=== PATIENT | male | born 1965 | race Caucasian/White ===

== ENCOUNTER 2016-08-09 19:19 | Inpatient (IN) ==
[2016-08-09] MEDS ORDERED: THIAMINE INJ 100 MG, FOLIC ACID INJ 1 MG, MAGNESIUM SULF INJ 2 GM, MULTIVITAMIN INJ 10 ... IV ONE (19:34)
[2016-08-09 19:43] LABS: Basophils % 0.5 % (0.0-0.8); Eosinophils # 0.2 10*3/uL (0.0-0.87); Eosinophils % 2.2 % (0.00-10.9); Hematocrit 33.5 VOL% (42.0-52.0); Hemoglobin 11.4 GM/DL (14.0-18.0); Immature Granulocytes % 0.3 %; Immature Granulocytes Absolute 0.02 #; Lymphocytes # 1.3 10*3/uL (1.4-4.0); Lymphocytes % 16.9 % (21.2-54.2); Mean Corpuscular Hemoglobin 37 PG (27-34); Mean Corpuscular Volume 108.1 FL (87-102); Monocytes # 0.8 10*3/uL (0.11-0.8); Monocytes % 10.8 % (1.7-12.7); Neutrophils # 5.1 10*3/uL (1.4-7.4); Neutrophils % 69.3 % (38.7-73.9); Platelet Count 51 T/CUMM (130-400); White Blood Count 7.4 T/CUMM (4-12)
[2016-08-09 19:53] LABS: INR 1.3; PT Patient Result 13.9 SECS; Partial Thromboplastin Time 39.2 SECS (0-40)
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
[2016-08-09 20:02] LABS: Ammonia 124 UMOL/L (11-32)
[2016-08-09 20:07] LABS: Alanine Aminotransferase 43 U/L (16-61); Alkaline Phosphatase 194 U/L (45-117); Aspartate Amino Transferase 53 U/L (0-37); Blood Urea Nitrogen 13 MG/DL (7-18); Calcium 7.9 MG/DL (8.5-10.1); Glucose 123 MG/DL (74-106); Osmolality,Calculated 277.5 MOS/KG (273-304); Potassium 4.1 MMOL/L (3.5-5.1); Sodium 139 MMOL/L (136-145); Total Protein 5.9 G/DL (6.4-8.3); Troponin I Only < 0.015 NG/ML (0.00-0.045)
[2016-08-09 20:15] LABS: Band Neutrophils 1 % (0-10); Lymphocytes 11 % (20-55); Platelet Estimate Decreased; Segmented Neutrophils 81 % (50-85); Total Cells Counted 100
[2016-08-09 20:16] LABS: Atypical Lymphocytes Few
[2016-08-09 20:17] LABS: Burr Cells Slight; Polychromasia Slight
--- NOTE | 2016-08-09 20:31 | XRay Report ---
History: Altered mental status. History of hypertension and COPD Date: 08/09/2016 Study: Chest x-ray AP portable Comparison exam: Chest x-ray August 05, 2016 The cardiomediastinal silhouette is unchanged. The pulmonary vasculature is slightly prominent. The exam was performed in shallow inspiration. Interstitial scarring in the lung bases is accentuated by shallow inspiration. There is no svetlana pneumonia or gross layering pleural effusion. Osseous structures are unchanged. Impression: Borderline pulmonary venous hypertension appearance. Otherwise grossly unchanged. Shallow breath PROCEDURE INTERPRETED AT [facility] DEPARTMENT OF RADIOLOGY Final Report Signed by: Dr. Brenda Salguero
[2016-08-09] MEDS ORDERED: ETOMIDATE 20 MG/10 ML VIAL IV ONE (21:29)
[2016-08-09] MEDS ORDERED: VECURONIUM 10 MG VIAL IV ONE (21:29)
[2016-08-09] MEDS ORDERED: SUCCINYLCHOLINE 200 MG/10 ML VIAL ONE (21:29)
[2016-08-09] MEDS ORDERED: PROPOFOL 1,000 MG/100 ML BOTTLE IV ONE (21:35)
[2016-08-09] MEDS ORDERED: PROPOFOL 1,000 MG/100 ML BOTTLE IV SCH ×3 (21:40→23:30)
[2016-08-09 22:07] LABS: ABG Base Excess 0.1 MMOL/L (-2.5-2.5); ABG HCO3 24.2 MMOL/L (20-26); ABG Oxygen Saturation 81.3 % (95-100); ABG PH 7.308 (7.35-7.45); ABG PO2 54.8 MM HG (80-95); ABG TCO2 24.6 MMOL/L (23-27); Pt O2 Delivery Device Ventilator
--- NOTE | 2016-08-09 22:08 | XRay Report ---
History: Endotracheal tube placement Date: 08/09/2016 Study: Chest x-ray AP portable Comparison exam: Chest x-ray 08/09/2016 at 7:42 PM The endotracheal tube is well positioned with its tip superior to the harrison. The chest is otherwise unchanged from the earlier study. Impression: Satisfactory positioning of the endotracheal tube. Otherwise unchanged from the earlier study PROCEDURE INTERPRETED AT [facility] DEPARTMENT OF RADIOLOGY Final Report Signed by: Dr. Brenda Salguero
[2016-08-09] MEDS ORDERED: SUCCINYLCHOLINE 200 MG/10 ML VIAL IM STA (22:30)
[2016-08-09] MEDS ORDERED: VECURONIUM 10 MG VIAL IV STA (22:31)
[2016-08-09 23:04] LABS: Apearance,Urine Slightly Hazy (Clear); Barbiturates Screen,Urine Negative (Negative); Benzodiazepines Screen,Urine Positive (Negative); Bilirubin,Urine Small mg/dL (Negative); Blood, Urine Large mg/dL (Negative); Cannabinoid Screen,Urine Negative (Negative); Glucose,Urine (UA) Negative (Negative); Granular Casts,Urine 7 /LPF (0-1); Hyaline Casts,Urine 71 /LPF (0-3); Ketones,Urine Negative (Negative); Mucus,Urine Many /LPF (Occasional); Nitrite,Urine Negative (Negative); Opiate Screen,Urine Positive (Negative); Phencyclidine Screen,Urine Negative (Negative); Protein,Urine 100 MG/DL; RBC,Urine 461 /HPF (0-4); Squamous Epithelial Cell,Urine Occasional /HPF (0-10); Urine Color Amber (Yellow); Urine Specific Gravity 1.028 (1.001-1.035); WBC,Urine 31 /HPF (0-6)
[2016-08-09] MEDS ORDERED: LACTULOSE 20 GM/30 ML UDCUP PO SCH (23:22)
[2016-08-09] MEDS ORDERED: DOCUSATE SODIUM 100 MG CAPSULE PO PRN ×2 (23:22→23:51)
[2016-08-09] MEDS ORDERED: ACETAMINOPHEN 325 MG TABLET PO PRN ×2 (23:22→23:51)
[2016-08-09] MEDS ORDERED: GLUCAGON 1 MG VIAL IM PRN ×2 (23:22→23:51)
[2016-08-09] MEDS ORDERED: DEXTROSE 50% 25 GM/50 ML VIAL IV PRN ×2 (23:22→23:51)
[2016-08-09] MEDS ORDERED: fentaNYL INJ 1,250 MCG in SODIUM CHLORIDE 0.9% 225 ML IV SCH (23:30)
[2016-08-10] MEDS ORDERED: INSULIN LISPRO 100 UNIT/ML SUBCUT SCH
[2016-08-10] MEDS: INSULIN LISPRO 100 UNIT/ML SUBCUT SCH ×4 (00:10→18:19)
[2016-08-10] MEDS: LACTULOSE 20 GM/30 ML UDCUP PO SCH ×6 (00:22→20:03)
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
[2016-08-10] MEDS ORDERED: PROPOFOL 1,000 MG/100 ML BOTTLE IV ONE ×2 (04:36→16:54)
[2016-08-10 05:10] LABS: Allen Test Positive; Pt O2 Delivery Device Ventilator
[2016-08-10 05:18] LABS: ABG Base Excess -2.3 MMOL/L (-2.5-2.5); ABG HCO3 26.8 MMOL/L (20-26); ABG Oxygen Saturation 83.5 % (95-100); ABG PCO2 67.2 MM HG (35-48); ABG PH 7.218 (7.35-7.45); ABG TCO2 28.8 MMOL/L (23-27)
[2016-08-10 06:07] LABS: Albumin 1.9 G/DL (3.4-5.0); Bilirubin,Total 3.9 MG/DL (0.2-1.0); Calcium 7.8 MG/DL (8.5-10.1); Magnesium 2.1 MG/DL (1.8-2.4); Osmolality,Calculated 277.5 MOS/KG (273-304); Potassium 4.4 MMOL/L (3.5-5.1); Total Protein 5.8 G/DL (6.4-8.3)
[2016-08-10 07:46] LABS: Basophils % 0.5 % (0.0-0.8); Eosinophils # 0.3 10*3/uL (0.0-0.87); Eosinophils % 4.3 % (0.00-10.9); Hematocrit 34.3 VOL% (42.0-52.0); Hemoglobin 11.7 GM/DL (14.0-18.0); Immature Granulocytes % 0.4 %; Immature Granulocytes Absolute 0.03 #; Lymphocytes % 27.1 % (21.2-54.2); Mean Corpuscular HGB Conc 34.1 GM/DL (32-36); Mean Corpuscular Hemoglobin 37 PG (27-34); Mean Corpuscular Volume 108.2 FL (87-102); Monocytes # 0.9 10*3/uL (0.11-0.8); Monocytes % 12.5 % (1.7-12.7); Neutrophils # 4.1 10*3/uL (1.4-7.4); Neutrophils % 55.2 % (38.7-73.9); Platelet Count 49 T/CUMM (130-400); Red Blood Count 3.17 MC/CUMM (3.8-5.5); Red Cell Distribution Width 18.7 % (9.3-17.3); White Blood Count 7.5 T/CUMM (4-12)
[2016-08-10 07:47] LABS: ABG Base Excess 3.2 MMOL/L (-2.5-2.5); ABG HCO3 27.3 MMOL/L (20-26); ABG Oxygen Saturation 99.3 % (95-100); ABG PCO2 33.1 MM HG (35-48); ABG PH 7.502 (7.35-7.45); ABG TCO2 22.9 MMOL/L (23-27)
--- NOTE | 2016-08-10 07:59 | XRay Report ---
History: Respiratory failure on ventilator Date: 08/10/2016 Study: Chest x-ray AP portable Comparison exam: 08/09/2016 The endotracheal and nasogastric tubes are well-positioned. The cardiomediastinal silhouette is unchanged. There is slight patient rotation to the right. There is some mild strandy subsegmental atelectasis or scarring in the lower lungs. There is no new or worsening infiltrate. There is no gross pleural effusion. The osseous structures are unchanged. Impression: The supporting tubes are in satisfactory position. No gross overall change otherwise PROCEDURE INTERPRETED AT [facility] DEPARTMENT OF RADIOLOGY Final Report Signed by: Dr. Brenda Salguero
[2016-08-10 08:37] LABS: Platelet Estimate Decreased
[2016-08-10] MEDS ORDERED: NADOLOL 40 MG TABLET PO SCH ×2 (09:00)
[2016-08-10] MEDS ORDERED: GABAPENTIN 400 MG CAPSULE PO SCH (09:00)
[2016-08-10] MEDS ORDERED: AMITRIPTYLINE 25 MG TABLET PO SCH (09:00)
[2016-08-10] MEDS ORDERED: FUROSEMIDE 40 MG TABLET PO SCH (09:00)
[2016-08-10] MEDS ORDERED: SPIRONOLACTONE 100 MG TABLET PO SCH (09:00)
[2016-08-10] MEDS ORDERED: LANSOPRAZOLE ODT 30 MG TABLET PER TUBE SCH (09:00)
--- NOTE | 2016-08-10 10:04 | Hospitalist Progress Note ---
Assessment and Plan - Time spent with patient Time spent with patient: Greater than 30 minutes (1) Hypoalbuminemia Status: Acute Assessment and plan: Likely due to liver cirrhosis with poor hepatic synthetic function Nutrition consult for tube feeding if we are unable to extubate him soon. Current Visit: No (2) Cirrhosis of liver Status: Chronic Assessment and plan: Liver cirrhosis with hepatic encephalopathy. On lactulose, monitor ammonia levels. Gastroenterology consult. Current Visit: No (3) Hepatitis C infection Status: Chronic Assessment and plan: Monitor liver function. Alpha-fetoprotein can be checked. Gastroenterology consult Current Visit: No (4) Altered mental status Status: Acute Assessment and plan: Due to hepatic encephalopathy. Continue lactulose and monitor adequate number of stools per day. Monitor ammonia levels. Avoid hepatotoxic medications Currently on propofol, and hemodynamically stable, stop sedation and assess mental status. Current Visit: No (5) Hepatic encephalopathy Status: Acute Current Visit: No (6) Hypernatremia Status: Acute Current Visit: No (7) History of alcoholism Status: Acute Assessment and plan: Continue vitamin supplementation. Thiamine, B12 and folate. Watch for DTs Current Visit: Yes (8) Thrombocytopenia Status: Acute Assessment and plan: Likely due to liver cirrhosis. No active bleeding. Monitor platelet count. Current Visit: Yes Hospitalist: Subjective Interval history: 51-year-old male with history of alcoholic cirrhosis, IV drug abuse who was admitted overnight for altered mental status suspected to be due to hepatic encephalopathy. He ended up being intubated and is currently on vent support. He was fully sedated at the time of my rounds this morning so no neurological examination could be done. He was however hemodynamically stable at that time with good heart rate and blood pressure. Serum ammonia levels are much better since lactulose was started. No fever Exam - Constitutional Vitals: Period Temp Pulse Resp BP Sys/Torres Pulse Ox Last 24 Hr 97.8 F-98.3 F 86-102 13-17 88-122/65-87 93-100 General appearance: no acute distress, other (Sedated) Exam: General appearance: disheveled, intubated and sedated Exam: - ENT ENT exam: Present: normal external ear exam, normal oropharynx ENT Exam Mouth exam: Present: moist, poor dentition - Neck Neck exam: Present: normal inspection. Absent: lymphadenopathy, thyromegaly - Respiratory Respiratory exam: Present: Transmitted sounds on vent. I did not appreciate any rales, rhonchi, wheezes - Cardiovascular Cardiovascular exam: Present: regular rate and rhythm. Absent: diastolic murmur , systolic murmur - Expanded Cardiovascular Exam Peripheral pulses: 2+: posterior tibialis (L), posterior tibialis (R) - GI/Abdominal GI/Abdominal exam: Present: normal bowel sounds, soft, clean dry intact dressing over paracentesis. Absent: distended, hyperactive bowel sounds, hypoactive bowel sounds, organomegaly, tenderness, rebound - Extremities Exam Extremities exam: Present: Bilateral lower extremity edema - Neurological Exam Neurological exam: Present: Did not alert to voice or pain on sedation, paralytic - Skin Skin exam: Present: warm, dry. Absent: diaphoretic, rash - Head Head exam: Present: normal inspection, normocephalic, atraumatic - Respiratory Respiratory exam: Present: clear to auscultation bilaterally, other ( Transmitted breath sounds) - Cardiovascular Cardiovascular exam: Present: regular rate and rhythm - GI/Abdominal GI/Abdominal exam: Present: soft - Neurological Exam Neurological exam: Present: other (Sedated, unable to assess) - Skin Skin exam: Present: normal color, warm, dry Results - Labs CBC & BMP: 08/10/16 07:41 08/10/16 05:25 Lab Results: I have reviewed the past 24 hour labs - Diagnostic Findings Procedure: Chest x-ray: report reviewed by me, image reviewed by me Quality Measures - VTE Contraindication to Pharmacological VTE Prophylaxis: Thrombocytopenia
[2016-08-10] MEDS: FUROSEMIDE 40 MG TABLET PO SCH (10:21)
[2016-08-10] MEDS: AMITRIPTYLINE 25 MG TABLET PO SCH (10:21)
[2016-08-10] MEDS: SPIRONOLACTONE 50 MG TABLET PO SCH (10:21)
[2016-08-10] MEDS: LANSOPRAZOLE ODT 30 MG TABLET PER TUBE SCH (10:22)
[2016-08-10] MEDS: GABAPENTIN 400 MG CAPSULE PO SCH ×3 (10:25→21:06)
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
[2016-08-10] MEDS ORDERED: NOREPINEPHRINE 4 MG/4 ML VIAL IV ONE (13:30)
[2016-08-10] MEDS: NOREPINEPHRINE 8 MG in SODIUM CHLORIDE 0.9% 242 ML IV SCH (13:35)
[2016-08-10 15:51] LABS: Pt O2 Delivery Device Ventilator
[2016-08-10 15:52] LABS: ABG Base Excess 3.9 MMOL/L (-2.5-2.5); ABG HCO3 26.4 MMOL/L (20-26); ABG Oxygen Saturation 97.4 % (95-100); ABG PCO2 32.5 MM HG (35-48); ABG PH 7.527 (7.35-7.45); ABG PO2 102.6 MM HG (80-95); ABG TCO2 27.4 MMOL/L (23-27)
[2016-08-10] MEDS: fentaNYL INJ 1,250 MCG in SODIUM CHLORIDE 0.9% 225 ML IV SCH (20:48)
[2016-08-10] MEDS ORDERED: PROPOFOL 1,000 MG/100 ML BOTTLE IV SCH (23:30)
[2016-08-11] MEDS: INSULIN LISPRO 100 UNIT/ML SUBCUT SCH ×5 (00:02→23:59)
[2016-08-11] MEDS: LACTULOSE 20 GM/30 ML UDCUP PO SCH ×6 (00:20→18:31)
[2016-08-11] MEDS: fentaNYL INJ 1,250 MCG in SODIUM CHLORIDE 0.9% 225 ML IV SCH (00:21)
[2016-08-11 05:46] LABS: Albumin 1.8 G/DL (3.4-5.0); Bilirubin,Total 3.4 MG/DL (0.2-1.0); Calcium 7.6 MG/DL (8.5-10.1); Magnesium 1.7 MG/DL (1.8-2.4); Osmolality,Calculated 275.5 MOS/KG (273-304); Potassium 4.1 MMOL/L (3.5-5.1); Total Protein 5.5 G/DL (6.4-8.3)
--- NOTE | 2016-08-11 07:17 | XRay Report ---
XR chest 1V portable Indication: Shortness of breath Comparison: Chest x-ray 08/10/2016 Technique: Portable AP chest was performed. Findings: Multiple tubes and medical support devices appear stable. Minimal airspace disease is present within the left cardiophrenic angle. Lungs otherwise are clear. Chest is otherwise stable. Impression: 1. Infectious process left medial lung base is not excluded. 08/11/2016 7:14 AM PROCEDURE INTERPRETED AT [facility] DEPARTMENT OF RADIOLOGY Final Report Signed by: Dr. Luke Mesa
[2016-08-11] MEDS ORDERED: MAGNESIUM SULF RIDER 2 GM in PREMIX 1 EACH IV ONE (07:28)
--- NOTE | 2016-08-11 08:00 | Hospitalist Progress Note ---
Assessment and Plan (1) Cirrhosis Status: Chronic Assessment and plan: Chronic. See plan for acute hepatic encephalopathy. Current Visit: Yes Qualifiers: Hepatic cirrhosis type: alcoholic cirrhosis Ascites presence: with ascites Qualified Code(s): K70.31 - Alcoholic cirrhosis of liver with ascites (2) Hypoalbuminemia Status: Chronic Current Visit: Yes (3) Hepatic encephalopathy Status: Acute Assessment and plan: Likely related to poor compliance with Lactulose. Ammonia levels on admission were quite elevated. Trending down on current lactulose regimen. Sedation held this am in anticipation of extubation. Currently non-combative. Current Visit: Yes (4) Hepatitis C Status: Chronic Current Visit: Yes Qualifiers: Hepatic coma status: with hepatic coma (5) History of alcoholism Status: Chronic Current Visit: Yes (6) Thrombocytopenia Status: Chronic Assessment and plan: Stable TCP. No signs of bleeding. Will continue to monitor the need to transfuse. Holding off for now. Current Visit: Yes (7) Hypomagnesemia Status: Acute Assessment and plan: Mildly low. Replace with Mag. Sulfate x1. Current Visit: Yes (8) Hypotension Status: Acute Assessment and plan: Nadolol held due to hypotension. Still remains on minimal pressors, however, weaning. Current Visit: Yes Hospitalist: Subjective Interval history: Patient remains intubated and on minimal sedation. Respiratory status is stable and will likely extubate today. No acute issues overnight. Propofol discontinued around 7am. Non-combative on rounds this morning. Ammonia levels decreased from admission values. Remains on minimal pressors with mean BP in the upper 80's- low 90's. Exam - Constitutional Vitals: Period Temp Pulse Resp BP Sys/Torres Pulse Ox Last 24 Hr 97.8 F-99.6 F 61-92 12-29 70-120/46-94 93-100 Exam: Ill-appearing, somnolent. No obvious distress - Head Head exam: Present: normocephalic, atraumatic - Eye Eye exam: Present: EOMI, scleral icterus - ENT ENT exam: Present: other (Poor dentition) - Neck Neck exam: Present: normal inspection. Absent: lymphadenopathy - Respiratory Respiratory exam: Present: clear to auscultation bilaterally. Absent: rales, rhonchi, wheezes - Cardiovascular Cardiovascular exam: Present: regular rate and rhythm. Absent: gallop, rubs, systolic murmur - GI/Abdominal GI/Abdominal exam: Present: normal bowel sounds, distended, soft. Absent: guarding - Neurological Exam Neurological exam: Present: other (Somnolent on minimal sedation) - Skin Skin exam: Present: warm, other (icteric) Results - Labs CBC & BMP: 08/10/16 07:41 08/11/16 04:49 Quality Measures - VTE Contraindication to Pharmacological VTE Prophylaxis: Thrombocytopenia
--- NOTE | 2016-08-11 08:15 | Pulmonology Progress Note ---
Pulmonary - PN: Subj Interval history: Patient is a 51-year-old white male that apparently has some cirrhosis with alcohol abuse. He apparently has a history of COPD also. He was very combative when he came into the emergency room and had to be intubated. Now he is waking up a little bit and is stable on the ventilator. He apparently is quite confused still however. His ammonia level was 99 this morning. Exam (Progress Note) - Constitutional Vitals: Period Temp Pulse Resp BP Sys/Torres Pulse Ox Last 24 Hr 98.6 F-99.6 F 61-92 12-29 70-120/46-94 93-100 General appearance: normal weight, no acute distress (He is still somewhat sedated on the ventilator.) - Head Head exam: Present: normal inspection, normocephalic - Eye Eye exam: Present: EOMI, scleral icterus Pupils: Present: LETTY - ENT ENT exam: Present: normal exam, other (ET tube is in good position) - Neck Neck exam: Present: normal inspection. Absent: lymphadenopathy, thyromegaly - Respiratory Respiratory exam: Present: clear to auscultation bilaterally. Absent: wheezes - Cardiovascular Cardiovascular exam: Present: regular rate and rhythm. Absent: gallop, systolic murmur - GI/Abdominal GI/Abdominal exam: Present: soft. Absent: ascites, organomegaly, tenderness - Extremities Exam Extremities exam: Absent: calf tenderness, edema - Neurological Exam Neurological exam: Present: altered (Patient is still quite agitated at times) - Psychiatric Psychiatric exam: Present: agitated - Skin Skin exam: Present: warm, dry Results - Labs CBC & BMP: 08/10/16 07:41 08/11/16 04:49 - Diagnostic Findings Procedure: Chest x-ray: image reviewed by me, report reviewed by me (Chest x- ray is clear.) Assessment and Plan (1) Cirrhosis Status: Acute Assessment and plan: Patient apparently has chronic liver disease and his ammonia level is 99 now. His total bilirubin is 3.4. Current Visit: Yes (2) Delirium due to general medical condition Status: Acute Assessment and plan: The patient was combative in the ER and had to be intubated. He is sedated now. Current Visit: Yes (3) COPD (chronic obstructive pulmonary disease) Status: Chronic Assessment and plan: Patient has a history of having COPD. He will continue with bronchodilator therapy. Current Visit: Yes (4) Respiratory failure Status: Acute Assessment and plan: The patient is fairly stable on the ventilator at present. Will extubate when he is more alert. Current Visit: Yes
[2016-08-11 08:32] LABS: ABG Base Excess 2.4 MMOL/L (-2.5-2.5); ABG HCO3 25.7 MMOL/L (20-26); ABG Oxygen Saturation 97.9 % (95-100); ABG PCO2 35.6 MM HG (35-48); ABG PH 7.477 (7.35-7.45); ABG PO2 108.8 MM HG (80-95); ABG TCO2 26.8 MMOL/L (23-27)
[2016-08-11] MEDS: SPIRONOLACTONE 50 MG TABLET PO SCH (09:02)
[2016-08-11] MEDS: FUROSEMIDE 40 MG TABLET PO SCH (09:03)
[2016-08-11] MEDS: AMITRIPTYLINE 25 MG TABLET PO SCH (09:03)
[2016-08-11] MEDS: LANSOPRAZOLE ODT 30 MG TABLET PER TUBE SCH (09:03)
[2016-08-11] MEDS: GABAPENTIN 400 MG CAPSULE PO SCH ×3 (09:03→20:00)
[2016-08-11] MEDS: LORazepam 2 MG/1 ML VIAL IV PRN ×2 (10:21→20:00)
[2016-08-11] MEDS: NOREPINEPHRINE 8 MG in SODIUM CHLORIDE 0.9% 242 ML IV SCH ×3 (12:31→22:50)
[2016-08-12] MEDS: LACTULOSE 20 GM/30 ML UDCUP PO SCH ×6 (00:03→20:50)
[2016-08-12] MEDS: INSULIN LISPRO 100 UNIT/ML SUBCUT SCH ×3 (06:00→18:16)
--- NOTE | 2016-08-12 07:16 | Hospitalist Progress Note ---
Hospitalist: Subjective Interval history: Patient was extubated 08/11/2016 at approximately 9:30 AM. He is still confused with garbled speech and answering a few yes or no questions. He has remained agitated at times requiring Ativan IV 2. No fever. No bowel movement reported over the last 24 hours. Exam - Constitutional Vitals: Period Temp Pulse Resp BP Sys/Torres Pulse Ox Last 24 Hr 97.5 F-98.8 F 79-93 8-24 66-130/51-96 90-97 Exam: GEN: Patient is awake, confused, lethargic but arousable lying in the hospital bed in no acute distress. HEENT: No icteric sclera. No nystagmus noted. Dry mucous membranes. NG tube in place Neck: Supple no lymphadenopathy or thyromegaly appreciated no JVD Cardiovascular: Regular rate and rhythm normal S1-S2 diminished no obvious murmurs appreciated Lungs: Clear to auscultation bilaterally with good aeration nonlabored breathing noted Abdomen: Slightly distended, slightly firm, nontender to palpation. Hypoactive bowel sounds appreciated Extremities: Warm and well-perfused no clubbing cyanosis or edema. Patient moves all extremities to tactile stimulation and occasionally to verbal command Neuro: A full neuro exam could not be completed as the patient was not cooperative with the exam. Results - Labs CBC & BMP: 08/12/16 07:45 08/12/16 07:45 Labs: 08/09 Urine culture- NGTD 08/10 Blood culture- NGTD x 2 - Impressions (1) Hepatic encephalopathy Status: Acute Assessment and plan: Likely related to poor compliance with Lactulose. Ammonia levels on admission were 99. Trending down on current lactulose regimen. Currently non-combative. Discussed with nursing checking for fecal impaction . Recheck labs this a.m. continue lactulose. Follow-up cultures. Will hold gabapentin for now current Visit: Yes (2) Cirrhosis due to alcohol use and hepatitis C Status: Chronic Assessment and plan: Chronic. See plan for acute hepatic encephalopathy. Current Visit: Yes Qualifiers: Hepatic cirrhosis type: alcoholic cirrhosis Ascites presence: with ascites Qualified Code(s): K70.31 - Alcoholic cirrhosis of liver with ascites (3) Acute hypoxic respiratory failure due to delirium -Patient extubated 08/11/2016 (4) Thrombocytopenia Status: Chronic Assessment and plan: Likely due to cirrhosis. No signs of bleeding. Will continue to monitor the need to transfuse. Holding off for now. Serial labs Current Visit: Yes (5) Hypomagnesemia Status: Acute Assessment and plan: Mildly low. Replaced with Mag. Sulfate x1 08/11. Recheck labs today Current Visit: Yes (6) Hypoalbuminemia Status: Chronic Current Visit: Yes (7) Hepatitis C Status: Chronic Current Visit: Yes Qualifiers: Hepatic coma status: with hepatic coma (8) History of alcoholism Status: Chronic Current Visit: Yes (9) hypotension -We will hold Aldactone. Try to wean off Levophed. Check TSH and cortisol level. (10) COPD not in acute exacerbation -Aerosols as needed (11) debility -PT OT and speech therapy consult. Want speech evaluates perhaps patient may be able to start a diet. If not will obtain tube feeding recommendations per nutrition. (12) DVT prophylaxis- SCDs I left a message for his next of kin, Jenifer Miller, at the number provided by nursing staff at [phone]. Will update when available. 37 minutes spent with this pt. Quality Measures - VTE Contraindication to Pharmacological VTE Prophylaxis: Thrombocytopenia
[2016-08-12 07:58] LABS: Basophils # 0.1 10*3/uL (0.0-0.2); Basophils % 0.7 % (0.0-0.8); Eosinophils # 0.5 10*3/uL (0.0-0.87); Eosinophils % 6.2 % (0.00-10.9); Hematocrit 30.4 VOL% (42.0-52.0); Hemoglobin 10.5 GM/DL (14.0-18.0); Immature Granulocytes % 0.2 %; Immature Granulocytes Absolute 0.02 #; Lymphocytes # 2.3 10*3/uL (1.4-4.0); Lymphocytes % 28.1 % (21.2-54.2); Mean Corpuscular HGB Conc 34.5 GM/DL (32-36); Mean Corpuscular Hemoglobin 38 PG (27-34); Mean Corpuscular Volume 108.6 FL (87-102); Mean Platelet Volume 10.8 FL (9.6-12.0); Monocytes # 0.7 10*3/uL (0.11-0.8); Monocytes % 8.9 % (1.7-12.7); Neutrophils # 4.6 10*3/uL (1.4-7.4); Neutrophils % 55.9 % (38.7-73.9); Platelet Count 58 T/CUMM (130-400); White Blood Count 8.2 T/CUMM (4-12)
[2016-08-12 08:26] LABS: Albumin 1.7 G/DL (3.4-5.0); Bilirubin,Direct 1.8 MG/DL (0.0-0.20); Bilirubin,Indirect 2.4 MG/DL (0.0-1.0); Bilirubin,Total 4.2 MG/DL (0.2-1.0); Calcium 7.4 MG/DL (8.5-10.1); Osmolality,Calculated 274.7 MOS/KG (273-304); Phosphorous 2.6 MG/DL (2.5-4.9); Potassium 3.8 MMOL/L (3.5-5.1); Total Protein 5.4 G/DL (6.4-8.3)
[2016-08-12 08:36] LABS: Burr Cells Slight; Eosinophils 5 % (0-10); Hypochromasia Slight; Lymphocytes 19 % (20-55); Ovalocytes Slight; Platelet Estimate Decreased; Segmented Neutrophils 67 % (50-85); Total Cells Counted 100
[2016-08-12] MEDS: AMITRIPTYLINE 25 MG TABLET PO SCH (09:17)
[2016-08-12] MEDS: LANSOPRAZOLE ODT 30 MG TABLET PER TUBE SCH (09:17)
[2016-08-12] MEDS: FUROSEMIDE 40 MG TABLET PO SCH (09:17)
[2016-08-12 10:11] LABS: Free T4 (Free Thyroxine) 1.13 NG/DL (0.76-1.46); Thyroid Stimulating Hormone 1.93 uIU/ml (0.358-3.74)
[2016-08-12] MEDS: NOREPINEPHRINE 8 MG in SODIUM CHLORIDE 0.9% 242 ML IV SCH ×2 (10:50→15:44)
--- NOTE | 2016-08-12 13:10 | Pulmonology Progress Note ---
Pulmonary - PN: Subj Interval history: Patient is a 51-year-old white male that apparently has some cirrhosis with alcohol abuse. He apparently has a history of COPD also. He was very combative when he came into the emergency room and had to be intubated. He was stable on the ventilator but has remained agitated at times. Yesterday he was extubated and is breathing okay. He still requires some Ativan at times. He does not seem to be having much shortness of breath now. Exam (Progress Note) - Constitutional Vitals: Period Temp Pulse Resp BP Sys/Torres Pulse Ox Last 24 Hr 97.5 F-98.2 F 78-93 8-19 87-130/55-96 90-97 Exam: General appearance: normal weight, no acute distress (He is arousable but still quite lethargic. He is not having any respiratory distress. ) - Head Head exam: Present: normal inspection, normocephalic - Eye Eye exam: Present: EOMI, scleral icterus Pupils: Present: LETTY - ENT ENT exam: Present: normal exam - Neck Neck exam: Present: normal inspection. Absent: lymphadenopathy, thyromegaly - Respiratory Respiratory exam: Present: clear to auscultation bilaterally. He has good breath sounds is moving air okay. absent: wheezes - Cardiovascular Cardiovascular exam: Present: regular rate and rhythm. Absent: gallop, systolic murmur - GI/Abdominal GI/Abdominal exam: Present: soft. Absent: ascites, organomegaly, tenderness - Extremities Exam Extremities exam: Absent: calf tenderness, edema - Neurological Exam Neurological exam: Present: altered (Patient is still quite agitated at times) - Psychiatric Psychiatric exam: Present: He has lethargic at present - Skin Skin exam: Present: warm, dry Results - Labs CBC & BMP: 08/12/16 07:45 08/12/16 07:45 Assessment and Plan (1) Cirrhosis Status: Acute Assessment and plan: Patient apparently has chronic liver disease and did have a high ammonia level. It is down to 39 now. Current Visit: Yes (2) Delirium due to general medical condition Status: Acute Assessment and plan: The patient was combative in the ER and had to be intubated. He is off the ventilator now but still requires some sedation. Current Visit: Yes (3) COPD (chronic obstructive pulmonary disease) Status: Chronic Assessment and plan: Patient has a history of having COPD. He will continue with bronchodilator therapy. Current Visit: Yes (4) Respiratory failure Status: Acute Assessment and plan: The patient came off the ventilator okay and is not having any respiratory distress now. Current Visit: Yes
[2016-08-12] MEDS: LORazepam 2 MG/1 ML VIAL IV PRN ×3 (14:03→23:41)
[2016-08-13] MEDS: LACTULOSE 20 GM/30 ML UDCUP PO SCH ×7 (00:12→23:35)
[2016-08-13] MEDS: INSULIN LISPRO 100 UNIT/ML SUBCUT SCH ×5 (00:13→23:35)
[2016-08-13 05:04] LABS: Basophils % 0.6 % (0.0-0.8); Eosinophils # 0.5 10*3/uL (0.0-0.87); Hematocrit 28.5 VOL% (42.0-52.0); Hemoglobin 9.8 GM/DL (14.0-18.0); Immature Granulocytes % 0.6 %; Immature Granulocytes Absolute 0.04 #; Lymphocytes # 2.2 10*3/uL (1.4-4.0); Lymphocytes % 33.3 % (21.2-54.2); Mean Corpuscular HGB Conc 34.4 GM/DL (32-36); Mean Corpuscular Hemoglobin 37 PG (27-34); Mean Corpuscular Volume 107.5 FL (87-102); Mean Platelet Volume 11.2 FL (9.6-12.0); Monocytes # 0.7 10*3/uL (0.11-0.8); Monocytes % 10.2 % (1.7-12.7); Neutrophils # 3.1 10*3/uL (1.4-7.4); Neutrophils % 48.3 % (38.7-73.9); Platelet Count 61 T/CUMM (130-400); Red Blood Count 2.65 MC/CUMM (3.8-5.5); White Blood Count 6.5 T/CUMM (4-12)
[2016-08-13 05:27] LABS: Band Neutrophils 1 % (0-10); Eosinophils 6 % (0-10); Lymphocytes 29 % (20-55); Platelet Estimate Decreased; Segmented Neutrophils 59 % (50-85); Total Cells Counted 100
[2016-08-13 05:28] LABS: Hypochromasia 1+; Ovalocytes Slight
[2016-08-13 05:42] LABS: Albumin 1.7 G/DL (3.4-5.0); Bilirubin,Direct 1.6 MG/DL (0.0-0.20); Bilirubin,Indirect 1.9 MG/DL (0.0-1.0); Bilirubin,Total 3.5 MG/DL (0.2-1.0); Calcium 7.5 MG/DL (8.5-10.1); Osmolality,Calculated 279.4 MOS/KG (273-304); Phosphorous 2.8 MG/DL (2.5-4.9); Potassium 3.7 MMOL/L (3.5-5.1); Total Protein 5.3 G/DL (6.4-8.3)
[2016-08-13 05:43] LABS: Magnesium 1.8 MG/DL (1.8-2.4); Phosphorous 3.1 MG/DL (2.5-4.9); Prealbumin < 3.0 MG/DL (20-40)
--- NOTE | 2016-08-13 07:32 | Hospitalist Progress Note ---
Hospitalist: Subjective Interval history: Pt still lethargic. Off Levophed since 4am but SBP 80's. No fever. No cp or SOB. Tolerating tubefeeds. Good output with fecal management system. Exam - Constitutional Vitals: Period Temp Pulse Resp BP Sys/Torres Pulse Ox Last 24 Hr 97.1 F-98.1 F 78-90 11-23 80-125/44-89 93-100 Exam: GEN: Patient is lethargic with garbled speech but arousable lying in the hospital bed in no acute distress. NGT in place HEENT: No icteric sclera. No nystagmus noted. NG tube in place Neck: Supple no lymphadenopathy or thyromegaly appreciated no JVD Cardiovascular: Regular rate and rhythm normal S1-S2 diminished no obvious murmurs appreciated Lungs: Clear to auscultation bilaterally with good aeration nonlabored breathing noted Abdomen: Slightly distended, slightly firm, nontender to palpation. Hypoactive bowel sounds appreciated Extremities: Warm and well-perfused no clubbing cyanosis or edema. Patient moves all extremities to tactile stimulation and occasionally to verbal command Neuro: A full neuro exam could not be completed as the patient could not cooperative with the exam. Results - Labs CBC & BMP: 08/13/16 04:28 08/13/16 04:28 - Impressions (1) Encephalopathy- multifactorial due to hepatic failure/ hyperammonemia, gabapentin side effect vs other Status: Acute Assessment and plan: Reportedly related to poor compliance with Lactulose. Ammonia levels on admission were 99->39->97 today. Cont lactulose and follow clinically. Currently non-combative. Follow-up cultures. Cont to hold gabapentin and hold amitryptiline current Visit: Yes (2) Hypotension suspect possible adrenal insufficiency +/- hepatocardiac syndrome - cortisol low. Check ACTH and cortisol stim test. Start empiric hydrocortisone 50mg IV q8h x 1 day, then 50mg IV q12h, then 50mg IV q24h then start oral Hydrocortisone 20mg po qam and 10mg po hs. TSH was normal. (3) Cirrhosis due to alcohol use and hepatitis C Status: Chronic Assessment and plan: Chronic. See plan for acute hepatic encephalopathy. Current Visit: Yes Qualifiers: Hepatic cirrhosis type: alcoholic cirrhosis Ascites presence: with ascites Qualified Code(s): K70.31 - Alcoholic cirrhosis of liver with ascites (4) Acute hypoxic respiratory failure due to delirium -Patient extubated 08/11/2016 (5) Thrombocytopenia Status: Chronic Assessment and plan: Likely due to cirrhosis. No signs of bleeding. Will continue to monitor the need to transfuse. Holding off for now. Serial labs Current Visit: Yes (6) Hypomagnesemia Status: Acute Assessment and plan: Mildly low. Replaced with Mag. Sulfate x1 08/11. Current Visit: Yes (7) Hypoalbuminemia/ Severe protein calorie malnutrition Status: Chronic Current Visit: Yes - on tubefeeds. Nutrition following (8) Hepatitis C Status: Chronic Current Visit: Yes Qualifiers: Hepatic coma status: with hepatic coma (9) History of alcoholism Status: Chronic Current Visit: Yes (10) COPD not in acute exacerbation -Aerosols as needed (11) debility with dysphagia (likely due to decreased mental status) -PT/OT and speech therapy consult. Cont tube feedings per nutrition. (12) DVT prophylaxis- SCDs Lengthy discussion with Jenifer Miller (cousin) by phone at [phone]. She requests at discharge he go to residential with hospice services. Will consult case management to arrange. She requests to speak with rn case management. Quality Measures - VTE Contraindication to Pharmacological VTE Prophylaxis: Thrombocytopenia
[2016-08-13] MEDS ORDERED: COSYNTROPIN 0.25 MG VIAL IV ONE (08:00)
--- NOTE | 2016-08-13 08:19 | Pulmonology Progress Note ---
Pulmonary - PN: Subj Interval history: Patient is a 51-year-old white male that apparently has some cirrhosis with alcohol abuse. He apparently has a history of COPD also. He was very combative when he came into the emergency room and had to be intubated. He was stable on the ventilator but has remained agitated at times. He is extubated and has done fairly well off the ventilator. He still is confused and gets agitated at times. He certainly looks chronically ill. His breathing seems to be stable. Exam (Progress Note) - Constitutional Vitals: Period Temp Pulse Resp BP Sys/Torres Pulse Ox Last 24 Hr 97.1 F-98.1 F 78-90 11-23 80-125/44-89 93-100 Exam: General appearance: normal weight, no acute distress (He is talking some but is very hard to understand. He is not having any respiratory distress.) - Head Head exam: Present: normal inspection, normocephalic - Eye Eye exam: Present: EOMI, scleral icterus Pupils: Present: LETTY - ENT ENT exam: Present: normal exam - Neck Neck exam: Present: normal inspection. Absent: lymphadenopathy, thyromegaly - Respiratory Respiratory exam: Present: He has fairly good breath sounds bilaterally with some mild rhonchi. - Cardiovascular Cardiovascular exam: Present: regular rate and rhythm. Absent: gallop, systolic murmur - GI/Abdominal GI/Abdominal exam: Present: soft. Absent: ascites, organomegaly, tenderness - Extremities Exam Extremities exam: Absent: calf tenderness, edema - Neurological Exam Neurological exam: Present: altered (Patient is still quite agitated at times) - Psychiatric Psychiatric exam: Present: He responds now but does get agitated. - Skin Skin exam: Present: warm, dry Results - Labs CBC & BMP: 08/13/16 04:28 08/13/16 04:28 Assessment and Plan (1) Cirrhosis Status: Acute Assessment and plan: Patient apparently has chronic liver disease and his ammonia level is back up to 95. His bilirubin is 3.5. Current Visit: Yes (2) Delirium due to general medical condition Status: Acute Assessment and plan: The patient was combative in the ER and had to be intubated. He is off the ventilator now but still requires some sedation. He still gets agitated at times. Current Visit: Yes (3) COPD (chronic obstructive pulmonary disease) Status: Chronic Assessment and plan: Patient has a history of having COPD. He will continue with bronchodilator therapy. Current Visit: Yes (4) Respiratory failure Status: Acute Assessment and plan: The patient came off the ventilator okay and is not having any respiratory distress now. He is breathing comfortably although he still requires some sedation at times. Current Visit: Yes
[2016-08-13] MEDS: FUROSEMIDE 40 MG TABLET PO SCH (08:47)
[2016-08-13] MEDS: SPIRONOLACTONE 50 MG TABLET PO SCH (08:47)
[2016-08-13] MEDS: LANSOPRAZOLE ODT 30 MG TABLET PER TUBE SCH (08:56)
[2016-08-13] MEDS: HYDROCORTISONE 100 MG VIAL IV SCH ×2 (10:50→17:16)
--- NOTE | 2016-08-13 12:02 | Case Mgmt Physician Query Form ---
TB Signs and Symptoms Screening ([place]) INSTRUCTIONS: To be completed annually on residents/staff with a significant Tuberculin Skin Test (TST) upon admission/hire or a prior significant TST. To be completed on all staff at hire. Please respond to each listed symptom with an (X) in either the "YES" or "NO" box. Do you currently have any of the following symptoms: YES NO ( ) ( x) A cough If yes, is it: ( ) Productive ( ) Non- productive ( ) ( x) Hemoptysis (spitting up blood) ( ) ( x) Chest pains ( ) ( ) Weight Loss- unknown ( ) ( x) Fever ( ) (x ) Night Sweats ( ) ( ) Weakness- unknown ( ) ( ) Loss of Appetite- unknown ( ) ( x) Difficulty Breathing If you answered YES" to any of the above questions, how long have symptoms been present? Comments: Pt is currently encephalopathic and has been for at least 4 days. If you have any questions, please contact me. Thank you, Hannah Stephens RN, [facility] Case Management Department Office Voice Mail: [phone] [email or web address]
[2016-08-13] MEDS ORDERED: TUBERCULIN SKIN TEST 0.1 ML SYRINGE INTRADERM ONE (12:30)
[2016-08-13] MEDS: NOREPINEPHRINE 8 MG in SODIUM CHLORIDE 0.9% 242 ML IV SCH (14:34)
[2016-08-13] MEDS: LORazepam 2 MG/1 ML VIAL IV PRN ×2 (14:54→21:59)
--- NOTE | 2016-08-13 16:52 | XRay Report ---
History: Nasogastric tube placement Date: 08/13/2016 Study: Chest x-ray AP portable Comparison exam: August 11, 2016 chest x-ray Nasogastric tube is positioned with the tip at the mid stomach body level. There is no svetlana bowel obstruction. The partially included lung bases are grossly clear. Impression: The nasogastric tube is well-positioned PROCEDURE INTERPRETED AT [facility] DEPARTMENT OF RADIOLOGY Final Report Signed by: Dr. Brenda Salguero
[2016-08-14] MEDS: HYDROCORTISONE 100 MG VIAL IV SCH ×4 (01:31→21:54)
[2016-08-14] MEDS: LACTULOSE 20 GM/30 ML UDCUP PO SCH ×5 (03:08→21:54)
[2016-08-14] MEDS: LORazepam 2 MG/1 ML VIAL IV PRN ×2 (03:47→17:45)
[2016-08-14] MEDS: INSULIN LISPRO 100 UNIT/ML SUBCUT SCH ×4 (06:01→23:38)
--- NOTE | 2016-08-14 07:10 | Pulmonology Progress Note ---
Pulmonary - PN: Subj Interval history: Patient is a 51-year-old white male that apparently has some cirrhosis with alcohol abuse. He apparently has a history of COPD also. He was very combative when he came into the emergency room and had to be intubated. He was stable on the ventilator but has remained agitated at times. He is extubated and has done fairly well off the ventilator. He still gets agitated and confused but has been resting in bed okay. He does not have any respiratory distress now. Exam (Progress Note) - Constitutional Vitals: Period Temp Pulse Resp BP Sys/Torres Pulse Ox Last 24 Hr 97.0 F-98.4 F 84-100 12-29 82-122/55-95 91-99 Exam: General appearance: normal weight, no acute distress (He is talking some but is very hard to understand. He is not having any respiratory distress.) - Head Head exam: Present: normal inspection, normocephalic - Eye Eye exam: Present: EOMI, scleral icterus Pupils: Present: LETTY - ENT ENT exam: Present: normal exam, he has an NG tube in place. - Neck Neck exam: Present: normal inspection. Absent: lymphadenopathy, thyromegaly - Respiratory Respiratory exam: Present: He has fairly good breath sounds bilaterally with some mild rhonchi. He is moving air well. - Cardiovascular Cardiovascular exam: Present: regular rate and rhythm. Absent: gallop, systolic murmur - GI/Abdominal GI/Abdominal exam: Present: soft. Absent: ascites, organomegaly, tenderness - Extremities Exam Extremities exam: Absent: calf tenderness, edema - Neurological Exam Neurological exam: Present: altered (Patient is still quite agitated at times) - Psychiatric Psychiatric exam: Present: He responds now but does get agitated. - Skin Skin exam: Present: warm, dry Results - Labs CBC & BMP: 08/13/16 04:28 08/13/16 04:28 Assessment and Plan (1) Cirrhosis Status: Acute Assessment and plan: Patient apparently has chronic liver disease and his ammonia level is back up to 95. His bilirubin is 3.5. He is getting lactulose and some nutritional support. Current Visit: Yes (2) Delirium due to general medical condition Status: Acute Assessment and plan: The patient was combative in the ER and had to be intubated. He is off the ventilator now but still requires some sedation. He still gets agitated at times. He does seem to be a little calmer at present. Current Visit: Yes (3) COPD (chronic obstructive pulmonary disease) Status: Chronic Assessment and plan: Patient has a history of having COPD. He will continue with bronchodilator therapy. Respiratory status is stable and he can go to the floor Current Visit: Yes (4) Respiratory failure Status: Acute Assessment and plan: The patient came off the ventilator okay and is not having any respiratory distress now. He is breathing comfortably although he still requires some sedation at times. Overall he seems to be relatively stable. Current Visit: Yes
--- NOTE | 2016-08-14 07:47 | Hospitalist Progress Note ---
Hospitalist: Subjective Interval history: Pt is more awake this am. He received IV ativan x 1 yesterday after he pulled out his NGT. Less agitated per nurse. No fever. +Good output via BMT. Reports some abd pain. Exam - Constitutional Vitals: Period Temp Pulse Resp BP Sys/Torres Pulse Ox Last 24 Hr 97.0 F-98.4 F 84-100 12-29 82-122/55-95 91-99 Exam: GEN: Patient is awake, alert with some garbled speech but lying in the hospital bed in no acute distress. NGT in place HEENT: No icteric sclera. No nystagmus noted. NG tube in place Cardiovascular: Regular rate and rhythm normal S1-S2 diminished no obvious murmurs appreciated Lungs: Clear to auscultation bilaterally with good aeration nonlabored breathing noted Abdomen: Slightly distended, slightly firm, no grimacing with exam when palpated. Hypoactive bowel sounds appreciated Extremities: Warm and well-perfused no clubbing cyanosis or edema. Patient moves all extremities to tactile stimulation and occasionally to verbal command Neuro: Moves all extremities to tactile stimulation and some to command. Results - Labs CBC & BMP: 08/14/16 08:16 08/14/16 08:16 - Impressions (1) Encephalopathy- multifactorial due to hepatic failure/ hyperammonemia, gabapentin side effect vs other- improving Status: Acute Assessment and plan: Reportedly related to poor compliance with Lactulose. Ammonia levels on admission were 99->39->97->72 today. Cont lactulose and follow clinically. Currently non-combative. Follow-up blood cultures. Urine culture negative. Cont to hold gabapentin and amitryptiline current Visit: Yes (2) Hypotension suspect possible adrenal insufficiency +/- hepatocardiac syndrome - cortisol low. ACTH pending. Cortisol stim test showed mild response to cosynthropin. Cont hydrocortisone 50mg IV but wean to q12h today, then 50mg IV q24h then start oral Hydrocortisone 20mg po qam and 10mg po hs. TSH was normal. 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 See plan for acute hepatic encephalopathy. may benefit from paracentesis in the near future. Current Visit: Yes Qualifiers: Hepatic cirrhosis type: alcoholic cirrhosis Ascites presence: with ascites Qualified Code(s): K70.31 - Alcoholic cirrhosis of liver with ascites (4) Acute hypoxic respiratory failure due to delirium -Patient extubated 08/11/2016 (5) Thrombocytopenia Status: Chronic Assessment and plan: Likely due to cirrhosis. No signs of bleeding. Will continue to monitor the need to transfuse. Holding off for now. Serial labs Current Visit: Yes (6) Hypomagnesemia Status: Acute Assessment and plan: Mildly low. Replaced with Mag. Sulfate x1 08/11. Current Visit: Yes (7) Hypoalbuminemia/ Severe protein calorie malnutrition Status: Chronic Current Visit: Yes - on tubefeeds. Nutrition following (8) Leukocytosis- likely due to steroids for adrenal insufficiency Status: Acute Current Visit: Yes Qualifiers: - no evidence of infection at this time. No fever. Monitor (9) History of alcoholism Status: Chronic Current Visit: Yes (10) COPD not in acute exacerbation -Aerosols as needed (11) debility with dysphagia (likely due to decreased mental status) -PT/OT and speech therapy consult. Cont tube feedings per nutrition. (12) DVT prophylaxis- SCDs Updated Jenifer Miller (cousin) by phone at [phone] 08/14. Arranging retirement with hospice services once ready for dc. Quality Measures - VTE Contraindication to Pharmacological VTE Prophylaxis: Thrombocytopenia
[2016-08-14 08:26] LABS: Basophils % 0.1 % (0.0-0.8); Eosinophils % 0.4 % (0.00-10.9); Hematocrit 30.1 VOL% (42.0-52.0); Hemoglobin 10.5 GM/DL (14.0-18.0); Immature Granulocytes % 0.5 %; Immature Granulocytes Absolute 0.06 #; Lymphocytes # 1.6 10*3/uL (1.4-4.0); Mean Corpuscular HGB Conc 34.9 GM/DL (32-36); Mean Corpuscular Hemoglobin 38 PG (27-34); Mean Corpuscular Volume 109.1 FL (87-102); Monocytes # 0.6 10*3/uL (0.11-0.8); Monocytes % 5.2 % (1.7-12.7); Neutrophils # 8.9 10*3/uL (1.4-7.4); Neutrophils % 79.8 % (38.7-73.9); Platelet Count 57 T/CUMM (130-400); Red Blood Count 2.76 MC/CUMM (3.8-5.5); Red Cell Distribution Width 19.5 % (9.3-17.3); White Blood Count 11.1 T/CUMM (4-12)
[2016-08-14 09:04] LABS: Albumin 1.9 G/DL (3.4-5.0); Bilirubin,Total 2.6 MG/DL (0.2-1.0); Calcium 7.9 MG/DL (8.5-10.1); Osmolality,Calculated 282.3 MOS/KG (273-304); Potassium 4.1 MMOL/L (3.5-5.1); Total Protein 6.1 G/DL (6.4-8.3)
[2016-08-14] MEDS: FUROSEMIDE 40 MG TABLET PO SCH (09:08)
[2016-08-14] MEDS: SPIRONOLACTONE 50 MG TABLET PO SCH (09:09)
[2016-08-14] MEDS: LANSOPRAZOLE ODT 30 MG TABLET PER TUBE SCH (09:09)
[2016-08-14] MEDS: NOREPINEPHRINE 8 MG in SODIUM CHLORIDE 0.9% 242 ML IV SCH (13:34)
--- NOTE | 2016-08-14 23:50 | Event Note ---
I was called by the floor in regards to the patient's tachycardia. We ordered EKG. It showed a abnormality in lead V2. I ordered a repeat EKG 30 minutes later this showed a elevation in the 2. Those are the only elevations do not seek a continuous elevation in 2 or more leads. Discussed the case with Dr. Graff. Cardiac enzymes are are pending. I am going to repeat the EKG in 30 minutes
[2016-08-15 00:19] LABS: Troponin I Only 0.104 NG/ML (0.00-0.045)
[2016-08-15] MEDS: LACTULOSE 20 GM/30 ML UDCUP PO SCH ×6 (00:26→22:17)
[2016-08-15] MEDS: CARVEDILOL 3.125 MG TABLET PO SCH ×3 (00:26→18:02)
[2016-08-15] MEDS: LORazepam 2 MG/1 ML VIAL IV PRN ×3 (04:39→22:30)
[2016-08-15 05:48] LABS: Basophils % 0.1 % (0.0-0.8); Eosinophils % 0.1 % (0.00-10.9); Hemoglobin 11.2 GM/DL (14.0-18.0); Immature Granulocytes % 1.2 %; Immature Granulocytes Absolute 0.15 #; Lymphocytes # 1.2 10*3/uL (1.4-4.0); Lymphocytes % 9.6 % (21.2-54.2); Mean Corpuscular HGB Conc 33.9 GM/DL (32-36); Mean Corpuscular Hemoglobin 38 PG (27-34); Mean Corpuscular Volume 111.1 FL (87-102); Mean Platelet Volume 11.4 FL (9.6-12.0); Monocytes # 0.3 10*3/uL (0.11-0.8); Neutrophils # 11.1 10*3/uL (1.4-7.4); Platelet Count 67 T/CUMM (130-400); Red Blood Count 2.97 MC/CUMM (3.8-5.5); White Blood Count 12.8 T/CUMM (4-12)
--- NOTE | 2016-08-15 06:05 | XRay Report ---
XR chest 1V portable Indication: NG tube placement. Comparison: None. Technique: Portable AP chest was performed. Findings: NG tube cannot be identified on the provided image. Impression: 1. NG tube is not reliably identified on the provided image. 08/15/2016 6:02 AM PROCEDURE INTERPRETED AT [facility] DEPARTMENT OF RADIOLOGY Final Report Signed by: Dr. Luke Mesa
[2016-08-15 06:09] LABS: Band Neutrophils 4 % (0-10); Lymphocytes 8 % (20-55); Segmented Neutrophils 86 % (50-85); Total Cells Counted 100
[2016-08-15 06:10] LABS: Platelet Estimate Decreased
[2016-08-15 06:17] LABS: Bilirubin,Total 3.5 MG/DL (0.2-1.0); Calcium 8.3 MG/DL (8.5-10.1); Osmolality,Calculated 285.1 MOS/KG (273-304); Potassium 4.3 MMOL/L (3.5-5.1)
[2016-08-15 06:20] LABS: Troponin I Only 0.094 NG/ML (0.00-0.045)
--- NOTE | 2016-08-15 06:40 | EKG Report ---
Stationary ECG Study [facility] Test Date: 08/14/2016 11:00:13 PM Pat Name: BENNY DIOP Department: Room: 237 Gender: M Paratransit Operator: RT : 1965 Requested by: Mj Mazariegos Order Number: [id number] Reading MD: LEIDY THOMAS Intervals [place] Rate: 131 P: 999 MT: 0 QRS: -46 QRSD: 107 T: 114 QT: 302 QTc: 379 Interpretive Statements ATRIAL FLUTTER/TACHYCARDIA WITH RAPID VENTRICULAR RESPONSE PATTERN CONSISTENT WITH PULMONARY DISEASE LEFT ANTERIOR FASCICULAR BLOCK SEPTAL MYOCARDIAL INFARCTION, POSSIBLY ACUTE ACUTE [place] Electronically Signed On 08-18-16 08:15:54 CDT by LEIDY THOMAS [email or web address]
--- NOTE | 2016-08-15 06:44 | EKG Report ---
Stationary ECG Study [facility] Test Date: 08/15/2016 1:43:20 AM Pat Name: BENNY DIOP Department: Room: 237 Gender: M Director Athletic: RT : 1965 Requested by: Mj Mazariegos Order Number: [id number] Reading MD: LEIDY THOMAS Intervals [place] Rate: 122 P: 53 [place]: 139 QRS: -44 QRSD: 109 T: 142 QT: 294 QTc: 367 Interpretive Statements SINUS TACHYCARDIA MARKED LEFT AXIS DEVIATION PATTERN CONSISTENT WITH PULMONARY DISEASE SEPTAL MYOCARDIAL INFARCTION, POSSIBLY ACUTE ACUTE [place] Electronically Signed On 08-18-16 08:18:55 CDT by LEIDY THOMAS [email or web address]
--- NOTE | 2016-08-15 06:45 | EKG Report ---
Stationary ECG Study [facility] Test Date: 08/14/2016 11:30:01 PM Pat Name: BENNY DIOP Department: Room: 237 Gender: M Licensed Psychologist Director: RT : 1965 Requested by: Mj Mazariegos Order Number: [id number] Reading MD: LEIDY THOMAS Intervals [place] Rate: 129 P: 63 UT: 148 QRS: -49 QRSD: 106 T: 116 QT: 300 QTc: 376 Interpretive Statements SINUS TACHYCARDIA PATTERN CONSISTENT WITH PULMONARY DISEASE LEFT ANTERIOR FASCICULAR BLOCK SEPTAL MYOCARDIAL INFARCTION, POSSIBLY ACUTE ACUTE [place] Electronically Signed On 08-18-16 08:17:51 CDT by LEIDY THOMAS [email or web address]
--- NOTE | 2016-08-15 07:20 | XRay Report ---
XR chest 1V portable Indication: NG tube placement Comparison: None. Technique: Portable AP chest was performed. Findings: NG tube terminates within the fundus. Impression: 1. No evidence of acute pathology. 08/15/2016 7:17 AM PROCEDURE INTERPRETED AT [facility] DEPARTMENT OF RADIOLOGY Final Report Signed by: Dr. Luke Mesa
[2016-08-15] MEDS: INSULIN LISPRO 100 UNIT/ML SUBCUT SCH ×3 (07:31→18:02)
--- NOTE | 2016-08-15 09:21 | Hospitalist Progress Note ---
Hospitalist: Subjective Interval history: Pt is more awake, but still confused with garbled speech. He pulled NGT out and had it replaced after returning from radiology, nurse was unable to get back to him in time and he pulled it out today. No fever. Good output with BMT in place. Exam - Constitutional Vitals: Period Temp Pulse Resp BP Sys/Torres Pulse Ox Last 24 Hr 97.0 F-98.9 F 91-115 14-25 102-118/72-87 95-100 Exam: GEN: Patient is awake, alert with some garbled speech but lying in the hospital bed in no acute distress. NGT in place HEENT: poor oral care with brownish phlegm in mouth. No icteric sclera. No nystagmus noted. Cardiovascular: Regular rate and rhythm normal S1-S2 diminished no obvious murmurs appreciated Lungs: Clear to auscultation bilaterally with good aeration nonlabored breathing noted Abdomen: Slightly distended, slightly firm, no grimacing with exam when palpated. Hypoactive bowel sounds appreciated Extremities: Warm and well-perfused no clubbing cyanosis or edema. Patient moves all extremities to tactile stimulation and occasionally to verbal command Neuro: Moves all extremities to tactile stimulation and some to command. Results - Labs CBC & BMP: 08/15/16 05:07 08/15/16 05:07 - Impressions (1) Encephalopathy- multifactorial due to hepatic failure/ hyperammonemia, gabapentin side effect vs other- improving Status: Acute Assessment and plan: Reportedly related to poor compliance with Lactulose. Ammonia levels on admission were 99->39->97->72-> 72 today. Cont lactulose and follow clinically. Currently non-combative. Follow-up blood cultures. Urine culture negative. Cont to hold gabapentin and amitryptiline current Visit: Yes (2) Hypotension suspect possible adrenal insufficiency +/- hepatocardiac syndrome- improved - cortisol low. ACTH pending. Cortisol stim test showed mild response to cosynthropin. Cont hydrocortisone 50mg IV but wean to 50mg IV q24h then start oral/FT Hydrocortisone 20mg po qam and 10mg po hs. TSH was normal. 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 See plan for acute hepatic encephalopathy. may benefit from paracentesis in the near future if unable to dc with hospice. Current Visit: Yes Qualifiers: Hepatic cirrhosis type: alcoholic cirrhosis Ascites presence: with ascites Qualified Code(s): K70.31 - Alcoholic cirrhosis of liver with ascites (4) Acute hypoxic respiratory failure due to delirium -Patient extubated 08/11/2016. On NC doing well. (5) Thrombocytopenia Status: Chronic Assessment and plan: Likely due to cirrhosis. No signs of bleeding. Transfuse as needed. Serial labs Current Visit: Yes (6) Hypomagnesemia Status: Acute Assessment and plan: Mildly low. Replaced with Mag. Sulfate x1 08/11. Current Visit: Yes (7) Hypoalbuminemia/ Severe protein calorie malnutrition Status: Chronic Current Visit: Yes - on tubefeeds. Nutrition following (8) Leukocytosis- likely due to steroids for adrenal insufficiency Status: Acute Current Visit: Yes Qualifiers: - no evidence of infection at this time. No fever. Monitor (9) History of alcoholism Status: Chronic Current Visit: Yes (10) COPD not in acute exacerbation -Aerosols as needed (11) debility with dysphagia (likely due to decreased mental status) -PT/OT and speech therapy consult. Cont tube feedings per nutrition. (12) DVT prophylaxis- SCDs Updated Jenifer Miller (cousin) by phone at [phone] 08/15. She states he was on home hospice previously but does not know the company. D/W director social. Trying to arranging skilled nursing with hospice services. Replace NGT until arranged. Quality Measures - VTE Contraindication to Pharmacological VTE Prophylaxis: Thrombocytopenia
[2016-08-15] MEDS: HYDROCORTISONE 100 MG VIAL IV SCH (10:40)
--- NOTE | 2016-08-15 10:50 | Pulmonology Progress Note ---
Pulmonary - PN: Subj Interval history: Patient is a 51-year-old white male that apparently has some cirrhosis with alcohol abuse. He apparently has a history of COPD also. He was very combative when he came into the emergency room and had to be intubated. He was stable on the ventilator but has remained agitated at times. He is extubated and has done fairly well off the ventilator. He was moved to the room yesterday. He is severely debilitated and has garbled speech and confusion. He keeps pulling out his NG tube. He has had a tachycardia but has not had much respiratory distress. He is certainly looks chronically ill and debilitated. Exam (Progress Note) - Constitutional Vitals: Period Temp Pulse Resp BP Sys/Torres Pulse Ox Last 24 Hr 97.0 F-100 F 91-128 14-27 102-133/72-87 92-100 General appearance: cachectic, disheveled Exam: General appearance: normal weight, no acute distress (He is talking some but is very hard to understand. He is not having any respiratory distress. He certainly looks chronically ill.) - Head Head exam: Present: normal inspection, normocephalic - Eye Eye exam: Present: EOMI, scleral icterus Pupils: Present: LETTY - ENT ENT exam: Present: normal exam, he has an NG tube in place. - Neck Neck exam: Present: normal inspection. Absent: lymphadenopathy, thyromegaly - Respiratory Respiratory exam: Present: He has fairly good breath sounds bilaterally but does have some rhonchi. He is moving air okay. - Cardiovascular Cardiovascular exam: Present: regular rate and rhythm. Absent: gallop, systolic murmur - GI/Abdominal GI/Abdominal exam: Present: soft. Absent: ascites, organomegaly, tenderness - Extremities Exam Extremities exam: Absent: calf tenderness, edema - Neurological Exam Neurological exam: Present: altered (Patient is still quite agitated at times. He does not follow any commands purposefully) - Psychiatric Psychiatric exam: Present: He responds now but does get agitated. - Skin Skin exam: Present: warm, dry Results - Labs CBC & BMP: 08/15/16 05:07 08/15/16 05:07 Assessment and Plan (1) Cirrhosis Status: Chronic Assessment and plan: Patient apparently has chronic liver disease and his ammonia level is back up to 95. His bilirubin is 3.5. He is getting lactulose and some nutritional support. He is chronically ill-appearing Current Visit: Yes (2) Delirium due to general medical condition Status: Acute Assessment and plan: The patient was combative in the ER and had to be intubated. He is off the ventilator now but still requires some sedation. He still gets agitated at times. He has garbled speech and confusion. He continues to have a significant encephalopathy. Current Visit: Yes (3) COPD (chronic obstructive pulmonary disease) Status: Chronic Assessment and plan: Patient has a history of having COPD. He will continue with bronchodilator therapy. Respiratory status is stable and he seems to be breathing okay at present. Current Visit: Yes (4) Respiratory failure Status: Acute Assessment and plan: The patient came off the ventilator okay and is not having any respiratory distress now. He is breathing fairly well at present although he is extremely confused and cannot do much activity. His overall outlook looks very poor. Current Visit: Yes
[2016-08-15] MEDS ORDERED: TUBERCULIN SKIN TEST 0.1 ML SYRINGE INTRADERM ONE (12:00)
[2016-08-15] MEDS: FUROSEMIDE 40 MG TABLET PO SCH (12:08)
[2016-08-15] MEDS: LANSOPRAZOLE ODT 30 MG TABLET PER TUBE SCH (12:08)
--- NOTE | 2016-08-15 14:36 | XRay Report ---
Referring Physician: Liz Clemente MD Exam: XR chest 1V portable Date: August 15, 2016 at 1:57 PM Reason: NG tube placement Comparison: Chest one view portable August 15, 2016 Findings: A feeding tube is in place with its distal tip within the gastric fundus. The stomach is mildly distended with air. There is no evidence pneumoperitoneum, and the renal shadows are largely obscured. Evaluation of the lungs is limited. The osseous structures appear stable. Impression: A feeding tube is in place with its distal tip within the gastric fundus. PROCEDURE INTERPRETED AT [facility] DEPARTMENT OF RADIOLOGY Final Report Signed by: Dr. Isela Paul
--- NOTE | 2016-08-15 17:15 | ECHO Report ---
Anuel Partida Exam Date: 08/15/2016 14:19 Referring Physician: Technologist: Rsosi Wilder Age: 51 Ht (in): 73 Wt (lb): 192 Gender: M Exam Location: [facility], [place] Echo Indications: hypoxia, COPD, elevated troponin, tachycardia, hypomagnesemia, resp failure BP: 132 / 76 HR: 114 Rhythm: Sinus Technical Quality: Good IMPRESSIONS Severely increased septal wall thickness. Moderate concentric left ventricular hypertrophy with diastolic dysfunction. Left ventricular ejection fraction is estimated at >65 %. +/- apical HK. Mild mitral valve sclerosis. Mild aortic valve sclerosis. Mild tricuspid valve regurgitation. Tricuspid regurgitation velocities suggest a PAP of 17.6 mmHg + RAP. +large left pleural effusion. MEASUREMENTS (Male / Female) Normal Values 2D ECHO LV Diastolic Diameter PLAX 3.9 cm 4.2 - 5.9 / 3.9 - 5.3 cm LV Systolic Diameter PLAX 2.2 cm LV Fractional Shortening PLAX 42.2 % IVS Diastolic Thickness 1.7 cm 0.6 - 1.0 / 0.6 - 0.9 cm LVPW Diastolic Thickness 1.3 cm 0.6 - 1.0 / 0.6 - 0.9 cm Aortic Root Diameter 2.5 cm LA Systolic Diameter LX 3.5 cm 3.0 - 4.0 / 2.7 - 3.8 cm DOPPLER TR Peak Velocity 210.0 cm/s TR Peak Gradient 17.6 mmHg FINDINGS Left Ventricle Severely increased septal wall thickness. Moderate concentric left ventricular hypertrophy with diastolic dysfunction. Left ventricular ejection fraction is estimated at >65 %. +/- apical HK Right Ventricle Normal right ventricular size. Right Atrium Normal right atrial size. Left Atrium Normal left atrial size. Mitral Valve Mild mitral valve sclerosis. Aortic Valve Mild aortic valve sclerosis. Tricuspid Valve Morphologically normal tricuspid valve. Mild tricuspid valve regurgitation. Tricuspid regurgitation velocities suggest a PAP of 17.6 mmHg + RAP. Pulmonic Valve Pulmonic valve not well visualized. Pericardium No pericardial effusion. +large left pleural effusion. Aorta Normal size aortic root and proximal ascending aorta. Kevin Graff MD (Electronically Signed) Final Date: 15 August 2016 17:14
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
[2016-08-15] MEDS: BISOPROLOL 5 MG TABLET PO SCH (22:17)
[2016-08-15] MEDS ORDERED: ONDANSETRON 4 MG/2 ML VIAL IV PRN (23:50)
[2016-08-16] MEDS: INSULIN LISPRO 100 UNIT/ML SUBCUT SCH ×4 (01:37→17:07)
[2016-08-16 02:16] LABS: Basophils % 0.1 % (0.0-0.8); Eosinophils % 0.1 % (0.00-10.9); Hematocrit 30.2 VOL% (42.0-52.0); Hemoglobin 10.1 GM/DL (14.0-18.0); Immature Granulocytes % 0.1 %; Immature Granulocytes Absolute 0.01 #; Lymphocytes % 13.9 % (21.2-54.2); Mean Corpuscular HGB Conc 33.4 GM/DL (32-36); Mean Corpuscular Hemoglobin 38 PG (27-34); Mean Corpuscular Volume 113.5 FL (87-102); Mean Platelet Volume 11.2 FL (9.6-12.0); Monocytes # 0.2 10*3/uL (0.11-0.8); Monocytes % 2.7 % (1.7-12.7); Neutrophils # 5.8 10*3/uL (1.4-7.4); Neutrophils % 83.1 % (38.7-73.9); Platelet Count 49 T/CUMM (130-400); Red Blood Count 2.66 MC/CUMM (3.8-5.5); Red Cell Distribution Width 21.8 % (9.3-17.3); White Blood Count 6.9 T/CUMM (4-12)
[2016-08-16] MEDS: IBUPROFEN 100 MG/5 ML UDCUP PER TUBE PRN ×2 (02:20→18:21)
[2016-08-16] MEDS: CEFEPIME 1,000 MG in SODIUM CHLORIDE 0.9% 100 ML IV SCH ×3 (02:23→18:20)
[2016-08-16] MEDS: LACTULOSE 20 GM/30 ML UDCUP PO SCH ×6 (02:33→22:01)
[2016-08-16 02:46] LABS: Calcium 8.3 MG/DL (8.5-10.1); Magnesium 2.2 MG/DL (1.8-2.4); Osmolality,Calculated 287.1 MOS/KG (273-304); Potassium 3.7 MMOL/L (3.5-5.1)
[2016-08-16 02:51] LABS: Apearance,Urine CLOUDY (Clear); Bacteria,Urine Many /HPF (Few); Blood, Urine Large mg/dL (Negative); Glucose,Urine (UA) 50 mg/dL (Negative); Ketones,Urine Negative (Negative); Mucus,Urine Many /LPF (Occasional); Nitrite,Urine Positive (Negative); Protein,Urine 100 MG/DL; RBC,Urine 2424 /HPF (0-4); Urine Color Amber (Yellow); Urine Specific Gravity 1.031 (1.001-1.035); WBC,Urine 100 /HPF (0-6)
[2016-08-16 02:52] LABS: Bilirubin,Urine Small mg/dL (Negative)
[2016-08-16 06:27] LABS: Anisocytosis 1+; Band Neutrophils 6 % (0-10); Lymphocytes 12 % (20-55); Macrocytosis 1+; Myelocytes 2 %; Platelet Estimate Decreased; Segmented Neutrophils 80 % (50-85); Total Cells Counted 100
[2016-08-16] MEDS: HYDROCORTISONE 100 MG VIAL IV SCH (09:11)
[2016-08-16] MEDS: LANSOPRAZOLE ODT 30 MG TABLET PER TUBE SCH (09:12)
[2016-08-16] MEDS: BISOPROLOL 5 MG TABLET PO SCH ×2 (09:12→22:00)
[2016-08-16] MEDS: FUROSEMIDE 40 MG TABLET PO SCH (09:12)
--- NOTE | 2016-08-16 10:58 | Pulmonology Progress Note ---
Pulmonary - PN: Subj Interval history: This 51-year-old man has COPD and has a history of drug abuse and chronic liver disease. He has been mechanically ventilated a couple of times in the past. He is off the ventilator now. At present he is fairly stable but somewhat sleepy. His oxygen saturation is 93% on room air now. Since I am unable to get on the assessment page problem list includes #1 COPD stable at present, #2 history of drug abuse no withdrawal symptoms. #3 chronic liver disease appears to be stable. We need to check ammonia level. Exam (Progress Note) - Constitutional Vitals: Period Temp Pulse Resp BP Sys/Torres Pulse Ox Last 24 Hr 98.4 F-100.8 F 100-122 12-28 106-122/64-74 93-100 Exam: Drowsy but arousable. Vital signs normal. Oxygen saturation 93% on room air. HEENT: Pupils react to light. Throat clear. Neck supple bruits. Chest shows a few rhonchi not tight. Heart normal rate rhythm no murmurs. Abdomen soft nontender extremities no clubbing cyanosis edema. Results - Labs CBC & BMP: 08/16/16 02:03 08/16/16 02:03 Lab Results: I have reviewed the past 24 hour labs - Diagnostic Findings Procedure: Chest x-ray: image reviewed by me (Lungs essentially clear. Has a large trachea. No acute changes.)
--- NOTE | 2016-08-16 11:06 | Hospitalist Progress Note ---
Hospitalist: Subjective Interval history: Patient began with nausea and vomiting overnight. Tube feedings have been on hold. No change in his mental status. No fever. Exam - Constitutional Vitals: Period Temp Pulse Resp BP Sys/Torres Pulse Ox Last 24 Hr 98.4 F-100.8 F 100-122 12-28 106-122/64-74 93-100 Exam: GEN: Patient is awake with some garbled speech but lying in the hospital bed in no acute distress. Not following commands. NGT in place and clamped HEENT: No icteric sclera. No nystagmus noted. Cardiovascular: Regular rate and rhythm normal S1-S2 diminished no obvious murmurs appreciated Lungs: Clear to auscultation bilaterally with good aeration nonlabored breathing noted Abdomen: Slightly distended, slightly firm, no grimacing with exam when palpated. Hypoactive bowel sounds appreciated Extremities: Warm and well-perfused no clubbing cyanosis or edema. Patient moves all extremities to tactile stimulation and occasionally to verbal command Neuro: Moves all extremities to tactile stimulation. Results - Labs CBC & BMP: 08/16/16 02:03 08/16/16 02:03 - Impressions (1) Encephalopathy- multifactorial due to suspected anoxic brain injury ( prehospitalization), hepatic failure/ hyperammonemia, gabapentin side effect vs other- no improvement noted. Status: Acute Assessment and plan: Reportedly related to poor compliance with Lactulose. Ammonia levels on admission were 99->39->97->72-> 72 today. Cont lactulose and follow clinically. Currently non-combative. Follow-up blood cultures. Urine culture negative. Cont to hold gabapentin and amitryptiline current Visit: Yes (2) Hypotension suspect possible adrenal insufficiency +/- hepatocardiac syndrome- improved - cortisol low. ACTH pending. Cortisol stim test showed mild response to cosynthropin. Cont hydrocortisone 50mg IV q24h then start oral/FT Hydrocortisone 20mg po qam and 10mg po hs if able to resume tubefeeds. TSH was normal. 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 See plan for acute hepatic encephalopathy. may benefit from paracentesis in the near future if unable to dc with hospice. Current Visit: Yes Qualifiers: Hepatic cirrhosis type: alcoholic cirrhosis Ascites presence: with ascites Qualified Code(s): K70.31 - Alcoholic cirrhosis of liver with ascites (4) Acute hypoxic respiratory failure due to delirium -Patient extubated 08/11/2016. On NC doing well. (5) Thrombocytopenia Status: Chronic Assessment and plan: Likely due to cirrhosis. No signs of bleeding. Transfuse as needed. Serial labs Current Visit: Yes (6) Hypomagnesemia Status: Acute Assessment and plan: Mildly low. Replaced with Mag. Sulfate x1 08/11. Current Visit: Yes (7) Hypoalbuminemia/ Severe protein calorie malnutrition Status: Chronic Current Visit: Yes - holding tubefeeds at this time. Nutrition following (8) Leukocytosis-due to acute catheter associated UTI Status: Acute Current Visit: Yes Qualifiers: -Cont Cefepime. F/U urine culture. (9) History of alcoholism Status: Chronic Current Visit: Yes (10) COPD not in acute exacerbation -Aerosols as needed (11) debility with dysphagia (likely due to decreased mental status) -PT/OT and speech therapy consult. Reattempt tube feedings per nutrition. (12) Elevated troponin - Appreciate cardiology input. Medical management as allows (13) DVT prophylaxis- SCDs Updated Jenifer Miller (cousin) by phone at [phone] 08/15. Cousin requests inpatient hospice at discharge. She states he was on home hospice previously but does not know the company. D/W social research assistant 08/15. Trying to arranging long term with hospice services. Overall prognosis is poor. I will be away several days. One of my associates will follow in my absence. Quality Measures - VTE Contraindication to Pharmacological VTE Prophylaxis: Thrombocytopenia
--- NOTE | 2016-08-16 14:25 | XRay Report ---
Exam: XR chest 1V portable Indication: Fever Comparison study: 08/15/2016 Findings: Mild esophagogastric tube is poorly visualized but likely terminates within the abdomen. Gaseous distention of the stomach however is noted. Cardiac silhouette and mediastinal contours appear similar to prior. There is no focal consolidation, pneumothorax or pleural effusion. Minimal interstitial perihilar opacities may represent atelectasis or interstitial edema changes. Impression: Mild gaseous distention of the stomach with suspected positioning of the esophagogastric tube in the gastric lumen but not definitely visualized on this study. Probable perihilar and bibasilar atelectasis. PROCEDURE INTERPRETED AT [facility] DEPARTMENT OF RADIOLOGY Final Report Signed by: Donte Palomo
[2016-08-16] MEDS: LORazepam 2 MG/1 ML VIAL IV PRN (15:25)
--- NOTE | 2016-08-16 20:22 | Cardiology Progress Note ---
Assessment and Plan (1) Elevated troponin Status: Acute Assessment and plan: His troponins are angel zone but is not having chest pain , however he cannot interact very well anyway, due to his encephalopathy. His EKG does show equivocal [address] elevation in V2 but no other leads and it may be due to his LVH, which was seen by echo . the question about whether he has coronary disease or not may be a moot point in the if he did have coronary disease and we did take the Battery Stacker and want to intervene or even do bypass surgery he would need to be on aspirin and some heparin at times. Dr. Macias I have assessed that the risk would be greater than the benefit from being on these medications, mainly the increased risk of bleeding, both acutely and chronically. Thus, if he may even if he he does have CAD, he is probably medical management candidate Plan/regulation: We will add a low-dose of beta-jay jay to slow his rate down and less stress on the heart Some of that troponin rise could be from tachycardia No aspirin because he would result in a higher risk of bleeding No Lovenox because it would be a high risk of bleeding Try our best to treat him medically--he is not a candidate for invasive evaluation and therapy Probably would not be for a statin because of his liver disease We will try best medical therapy, which mainly would include beta-jay jay, but his prognosis is guarded, no matter what we do Thank you for allowing me to participate in this patient's care 08/16/16: Plan/recommendation/assessment: No overt ischemia. Heart rate remains elevated. Will increase bisoprolol to 5 mg p.o. twice daily. Hold parameters are given. His hepatic encephalopathy seems to be slightly better with your treatment. Current Visit: Yes (2) Tachycardia Status: Acute Current Visit: Yes (3) Cirrhosis Status: Chronic Current Visit: Yes (4) Hepatitis C Status: Chronic Current Visit: Yes Qualifiers: Hepatic coma status: with hepatic coma (5) History of alcoholism Status: Chronic Current Visit: Yes (6) Altered mental status Status: Acute Current Visit: Yes Cardiology - PN: Subj Interval history: No chest pain or shortness of breath . seems more alert. Exam (Progress Note) - Constitutional Vitals: Period Temp Pulse Resp BP Sys/Torres Pulse Ox Last 24 Hr 98.2 F-100.8 F 96-117 12-28 100-122/69-84 93-98 Exam: HEENT: Pupils equal, reactive to light and accommodation Neck: NoJVD or bruit Lungs clear to auscultation Heart: Regular rhythm rate with normal S1 and S2. Apical S4, 2/6 systolic ejection murmur along left lower sternal border. Abdomen: No hepatosplenomegaly Spine/extremities: No clubbing, cyanosis, or edema Neuro: Nonfocal Psych: No depression or anxiety Result/EKG - Labs CBC & BMP: 08/16/16 02:03 08/16/16 02:03 Lab Results: I have reviewed the past 24 hour labs Labs: Laboratory Results - last 24 hr 08/15/16 08/16/16 08/16/16 17:33 01:37 01:57 WBC RBC Hgb Hct MCV MCH MCHC RDW Plt Count MPV Neut % (Auto) Lymph % (Auto) [place] % (Auto) Eos % (Auto) Baso % (Auto) Neut # (Auto) Lymph # (Auto) [place] # (Auto) Eos # (Auto) Baso # (Auto) Total Counted Immature Gran % Nucleated RBC % Immature Gran # Segmented Neutrophils Band Neutrophils Lymphocytes Myelocytes Nucleated RBCs # Platelet Estimate Anisocytosis Macrocytosis Sodium Potassium Chloride Carbon Dioxide Anion Gap BUN Creatinine GFR Calculation BUN/Creatinine Ratio Glucose POC Glucose 150 H 149 H Calculated Osmolality Calcium Magnesium Urine Color Holly Urine Appearance Cloudy Urine pH 6.0 Ur Specific Marceline 1.031 Urine Protein 100 Urine Glucose (UA) 50 Urine Ketones Negative Urine Blood Large Urine Nitrate Positive H Urine Bilirubin Small H Urine Urobilinogen 4.0 H Urine Leukocytes Trace Urine RBC 2424 Urine WBC 100 Urine Bacteria Many Urine Mucus Many Ur Culture Indicated? Ordered separately 08/16/16 08/16/16 08/16/16 02:03 02:03 06:09 WBC 6.9 D RBC 2.66 L Hgb 10.1 L Hct 30.2 L MCV 113.5 H MCH 38 H MCHC 33.4 RDW 21.8 H Plt Count 49 L D MPV 11.2 Neut % (Auto) 83.1 H Lymph % (Auto) 13.9 L [place] % (Auto) 2.7 Eos % (Auto) 0.1 Baso % (Auto) 0.1 Neut # (Auto) 5.8 Lymph # (Auto) 1.0 L [place] # (Auto) 0.2 Eos # (Auto) 0.0 Baso # (Auto) 0.0 Total Counted 100 Immature Gran % 0.1 Nucleated RBC % 0.0 Immature Gran # 0.01 Segmented Neutrophils 80 Band Neutrophils 6 Lymphocytes 12 L Myelocytes 2 Nucleated RBCs # 0.00 Platelet Estimate Decreased Anisocytosis 1+ Macrocytosis 1+ Sodium 142 Potassium 3.7 Chloride 109 H Carbon Dioxide 25 Anion Gap 11.7 BUN 18 Creatinine 0.60 L GFR Calculation 141 BUN/Creatinine Ratio 30.00 H Glucose 150 H POC Glucose 162 H Calculated Osmolality 287.1 Calcium 8.3 L Magnesium 2.2 Urine Color Urine Appearance Urine pH Ur Specific Marceline Urine Protein Urine Glucose (UA) Urine Ketones Urine Blood Urine Nitrate Urine Bilirubin Urine Urobilinogen Urine Leukocytes Urine RBC Urine WBC Urine Bacteria Urine Mucus Ur Culture Indicated? 08/16/16 08/16/16 07:53 12:23 WBC RBC Hgb Hct MCV MCH MCHC RDW Plt Count MPV Neut % (Auto) Lymph % (Auto) [place] % (Auto) Eos % (Auto) Baso % (Auto) Neut # (Auto) Lymph # (Auto) [place] # (Auto) Eos # (Auto) Baso # (Auto) Total Counted Immature Gran % Nucleated RBC % Immature Gran # Segmented Neutrophils Band Neutrophils Lymphocytes Myelocytes Nucleated RBCs # Platelet Estimate Anisocytosis Macrocytosis Sodium Potassium Chloride Carbon Dioxide Anion Gap BUN Creatinine GFR Calculation BUN/Creatinine Ratio Glucose POC Glucose 113 H 125 H Calculated Osmolality Calcium Magnesium Urine Color Urine Appearance Urine pH Ur Specific Marceline Urine Protein Urine Glucose (UA) Urine Ketones Urine Blood Urine Nitrate Urine Bilirubin Urine Urobilinogen Urine Leukocytes Urine RBC Urine WBC Urine Bacteria Urine Mucus Ur Culture Indicated? - Diagnostic Findings Procedure: Chest x-ray: report reviewed by me - EKG EKG results: interpreted by me Quality Measures - VTE Contraindication to Pharmacological VTE Prophylaxis: Thrombocytopenia
[2016-08-17] MEDS: LACTULOSE 20 GM/30 ML UDCUP PO SCH ×5 (02:34→17:23)
[2016-08-17] MEDS: CEFEPIME 1,000 MG in SODIUM CHLORIDE 0.9% 100 ML IV SCH ×3 (03:51→18:13)
[2016-08-17 04:53] LABS: Calcium 8.3 MG/DL (8.5-10.1); Magnesium 2.5 MG/DL (1.8-2.4); Osmolality,Calculated 299.6 MOS/KG (273-304); Potassium 3.8 MMOL/L (3.5-5.1)
[2016-08-17 05:08] LABS: Hematocrit 30.9 VOL% (42.0-52.0); Hemoglobin 9.9 GM/DL (14.0-18.0); Mean Corpuscular Hemoglobin 39 PG (27-34); Mean Corpuscular Volume 120.2 FL (87-102); Mean Platelet Volume 11.5 FL (9.6-12.0); Red Blood Count 2.57 MC/CUMM (3.8-5.5); Red Cell Distribution Width 21.8 % (9.3-17.3); White Blood Count 5.8 T/CUMM (4-12)
[2016-08-17 05:10] LABS: Platelet Count 34 T/CUMM (130-400)
[2016-08-17] MEDS: INSULIN LISPRO 100 UNIT/ML SUBCUT SCH ×3 (07:09→18:03)
[2016-08-17] MEDS: LANSOPRAZOLE ODT 30 MG TABLET PER TUBE SCH (08:03)
[2016-08-17] MEDS: BISOPROLOL 5 MG TABLET PO SCH ×2 (08:03→21:54)
[2016-08-17] MEDS: FUROSEMIDE 40 MG TABLET PO SCH (08:03)
[2016-08-17] MEDS: HYDROCORTISONE 100 MG VIAL IV SCH (09:06)
--- NOTE | 2016-08-17 09:37 | Hospitalist Progress Note ---
Assessment and Plan - Time spent with patient Time spent with patient: Less than 30 minutes (1) Altered mental status Status: Acute Assessment and plan: Patient has encephalopathy which is likely multifactorial in etiology suspected secondary to anoxic brain injury prehospitalization, underlying liver disease, And infectious process. Continue to treat underlying etiologies and follow. Current Visit: Yes (2) Bacteremia Status: Acute Assessment and plan: Blood cultures positive for gram-negative rods with final ID and sensitivities pending. Patient has been placed on IV cefepime. We will continue to follow. Current Visit: Yes (3) Cirrhosis of liver Status: Chronic Current Visit: No (4) Hepatitis C Status: Chronic Current Visit: Yes Qualifiers: Hepatic coma status: with hepatic coma (5) History of alcoholism Status: Chronic Current Visit: Yes (6) Hypotension Status: Acute Assessment and plan: Blood pressures are currently improved and stable. Patient been evaluated for possible adrenal insufficiency and placed on IV hydrocortisone which we will continue at this time. Current Visit: Yes (7) COPD (chronic obstructive pulmonary disease) Status: Chronic Assessment and plan: Continue current medical regimen. Not in acute exacerbation. Current Visit: Yes (8) Thrombocytopenia Status: Chronic Assessment and plan: Patient has thrombocytopenia which is likely secondary to line cirrhosis and portal hypertension. There is no evidence of bleeding. We will continue to follow closely. Current Visit: Yes (9) Elevated troponin Status: Acute Assessment and plan: Patient had elevated troponin and was evaluated by cardiology. Not felt to be secondary to acute ischemic event. Will continue medical management. Current Visit: Yes Hospitalist: Subjective Interval history: Patient has been examined and chart reviewed. Patient is lethargic but arousable and does answer questions. He is oriented to person only. He denies any chest pain or shortness of breath. He pulled his NG tube out last evening and is been replaced. X-ray is currently pending. Exam - Constitutional Vitals: Period Temp Pulse Resp BP Sys/Torres Pulse Ox Last 24 Hr 97.9 F-99.2 F 85-112 12-22 99-112/62-84 93-99 General appearance: no acute distress - Head Head exam: Present: normocephalic, atraumatic - Eye Eye exam: Present: EOMI Pupils: Present: LETTY - ENT ENT exam: Present: normal oropharynx, other (NG tube in place) - Neck Neck exam: Absent: lymphadenopathy, meningismus, tenderness, thyromegaly - Respiratory Respiratory exam: Present: clear to auscultation bilaterally. Absent: rales, rhonchi, wheezes - Cardiovascular Cardiovascular exam: Present: regular rate and rhythm. Absent: systolic murmur , tachycardia - GI/Abdominal GI/Abdominal exam: Present: normal bowel sounds, soft. Absent: mass, tenderness , rebound - Extremities Exam Extremities exam: Absent: calf tenderness, edema - Back Exam Back exam: Present: normal inspection - Neurological Exam Neurological exam: Present: alert, CN II-XII intact, other (Oriented to person only). Absent: motor sensory deficit - Psychiatric Psychiatric exam: Present: flat affect. Absent: agitated, anxious - Skin Skin exam: Present: warm, dry. Absent: rash Results - Labs CBC & BMP: 08/17/16 04:06 08/17/16 04:06 Lab Results: I have reviewed the past 24 hour labs Quality Measures - VTE Contraindication to Pharmacological VTE Prophylaxis: Thrombocytopenia
--- NOTE | 2016-08-17 09:40 | Pulmonology Progress Note ---
Pulmonary - PN: Subj Interval history: This 51-year-old man has COPD and has a history of drug abuse and chronic liver disease. He has been mechanically ventilated a couple of times in the past. He is off the ventilator now. At present he is fairly stable but somewhat sleepy. His oxygen saturation is 93% on room air now. Since I am unable to get on the assessment page problem list includes #1 COPD stable at present, #2 history of drug abuse no withdrawal symptoms. #3 chronic liver disease appears to be stable. We need to check ammonia level. 08/17/2016 patient on little more alert but still quite confused. Little change from before. Again unable to get all assessment page. Problems are same as outlined above. Ammonia level was elevated at 57. Exam (Progress Note) - Constitutional Vitals: Period Temp Pulse Resp BP Sys/Torres Pulse Ox Last 24 Hr 97.9 F-99.2 F 85-112 12-22 99-112/62-84 93-99 Exam: Drowsy but arousable. Vital signs normal. Oxygen saturation 93% on room air. HEENT: Pupils react to light. Throat clear. Neck supple bruits. Chest shows a few rhonchi not tight. Heart normal rate rhythm no murmurs. Abdomen soft, has ascites, nontender. extremities no clubbing cyanosis edema. Results - Labs CBC & BMP: 08/17/16 04:06 08/17/16 04:06 Lab Results: I have reviewed the past 24 hour labs
--- NOTE | 2016-08-17 11:52 | Cardiology Progress Note ---
Assessment and Plan (1) Elevated troponin Status: Acute Assessment and plan: His troponins are angel zone but is not having chest pain , however he cannot interact very well anyway, due to his encephalopathy. His EKG does show equivocal [address] elevation in V2 but no other leads and it may be due to his LVH, which was seen by echo . the question about whether he has coronary disease or not may be a moot point in the if he did have coronary disease and we did take the Restoration Officer and want to intervene or even do bypass surgery he would need to be on aspirin and some heparin at times. Dr. Macias I have assessed that the risk would be greater than the benefit from being on these medications, mainly the increased risk of bleeding, both acutely and chronically. Thus, if he may even if he he does have CAD, he is probably medical management candidate Plan/regulation: We will add a low-dose of beta-jay jay to slow his rate down and less stress on the heart Some of that troponin rise could be from tachycardia No aspirin because he would result in a higher risk of bleeding No Lovenox because it would be a high risk of bleeding Try our best to treat him medically--he is not a candidate for invasive evaluation and therapy Probably would not be for a statin because of his liver disease We will try best medical therapy, which mainly would include beta-jay jay, but his prognosis is guarded, no matter what we do Thank you for allowing me to participate in this patient's care 08/16/16: Plan/recommendation/assessment: No overt ischemia. Heart rate remains elevated. Will increase bisoprolol to 5 mg p.o. twice daily. Hold parameters are given. His hepatic encephalopathy seems to be slightly better with your treatment. 08/17/16: Plan/recommendation/assessment: No chest pain. No overt ischemia. The bisoprolol has slowed his heart rate to less than 100. That would be favorable for his heart. His encephalopathy seems to be slightly better today with your treatment. Continue current therapy. Current Visit: Yes (2) Tachycardia Status: Acute Current Visit: Yes (3) Cirrhosis Status: Chronic Current Visit: Yes (4) Hepatitis C Status: Chronic Current Visit: Yes Qualifiers: Hepatic coma status: with hepatic coma (5) History of alcoholism Status: Chronic Current Visit: Yes (6) Altered mental status Status: Acute Current Visit: Yes Cardiology - PN: Subj Interval history: No chest pain or shortness of breath. More alert today. Exam (Progress Note) - Constitutional Vitals: Period Temp Pulse Resp BP Sys/Torres Pulse Ox Last 24 Hr 97.9 F-99.2 F 85-112 17-22 99-112/62-84 93-99 Exam: HEENT: Pupils equal, reactive to light and accommodation Neck: NoJVD or bruit Lungs clear to auscultation Heart: Regular rhythm rate with normal S1 and S2. Apical S4, 2/6 systolic ejection murmur along left lower sternal border. Abdomen: No hepatosplenomegaly Spine/extremities: No clubbing, cyanosis, or edema Neuro: Nonfocal Psych: No depression or anxiety Result/EKG - Labs CBC & BMP: 08/17/16 04:06 08/17/16 04:06 Lab Results: I have reviewed the past 24 hour labs Labs: Laboratory Results - last 24 hr 08/16/16 08/16/16 08/17/16 12:23 23:24 04:06 WBC 5.8 RBC 2.57 L Hgb 9.9 L Hct 30.9 L MCV 120.2 H MCH 39 H MCHC 32.0 RDW 21.8 H Plt Count 34 L* D MPV 11.5 Nucleated RBC % 0.0 Nucleated RBCs # 0.00 Sodium Potassium Chloride Carbon Dioxide Anion Gap BUN Creatinine GFR Calculation BUN/Creatinine Ratio Glucose POC Glucose 125 H 187 H Calculated Osmolality Calcium Magnesium Ammonia 08/17/16 08/17/16 08/17/16 04:06 04:06 06:19 WBC RBC Hgb Hct MCV MCH MCHC RDW Plt Count MPV Nucleated RBC % Nucleated RBCs # Sodium 146 H Potassium 3.8 Chloride 113 H Carbon Dioxide 26 Anion Gap 10.8 BUN 26 H Creatinine 0.60 L GFR Calculation 269 BUN/Creatinine Ratio 43.00 H Glucose 183 H POC Glucose 177 H Calculated Osmolality 299.6 Calcium 8.3 L Magnesium 2.5 H Ammonia 57 H 08/17/16 07:47 WBC RBC Hgb Hct MCV MCH MCHC RDW Plt Count MPV Nucleated RBC % Nucleated RBCs # Sodium Potassium Chloride Carbon Dioxide Anion Gap BUN Creatinine GFR Calculation BUN/Creatinine Ratio Glucose POC Glucose 163 H Calculated Osmolality Calcium Magnesium Ammonia - EKG EKG results: interpreted by me Quality Measures - VTE Contraindication to Pharmacological VTE Prophylaxis: Thrombocytopenia
[2016-08-17] MEDS: LORazepam 2 MG/1 ML VIAL IV PRN ×2 (14:10→21:54)
--- NOTE | 2016-08-17 14:14 | XRay Report ---
Exam: XR chest 1V portable Indication: NG tube placement Comparison study: 08/07/2016 at 1:57 AM radiograph Findings: Esophagogastric tube is noted within the stomach with the tip directed inferiorly. Mild gaseous distention of stomach is noted. Evaluation is otherwise limited due to technique. Impression: Esophagogastric tube within the stomach. PROCEDURE INTERPRETED AT [facility] DEPARTMENT OF RADIOLOGY Final Report Signed by: Donte Palomo
[2016-08-17] MEDS: IBUPROFEN 100 MG/5 ML UDCUP PER TUBE PRN (21:54)
[2016-08-18] MEDS: LACTULOSE 20 GM/30 ML UDCUP PO SCH ×7 (00:28→21:59)
[2016-08-18] MEDS: INSULIN LISPRO 100 UNIT/ML SUBCUT SCH ×4 (04:13→17:29)
[2016-08-18] MEDS: CEFEPIME 1,000 MG in SODIUM CHLORIDE 0.9% 100 ML IV SCH ×3 (04:22→18:09)
[2016-08-18 05:34] LABS: Basophils % 0.2 % (0.0-0.8); Hematocrit 28.5 VOL% (42.0-52.0); Hemoglobin 9.3 GM/DL (14.0-18.0); Immature Granulocytes % 0.5 %; Immature Granulocytes Absolute 0.03 #; Lymphocytes % 16.1 % (21.2-54.2); Mean Corpuscular HGB Conc 32.6 GM/DL (32-36); Mean Corpuscular Hemoglobin 38 PG (27-34); Mean Corpuscular Volume 117.3 FL (87-102); Mean Platelet Volume 11.7 FL (9.6-12.0); Monocytes # 0.5 10*3/uL (0.11-0.8); Monocytes % 8.3 % (1.7-12.7); Neutrophils # 4.8 10*3/uL (1.4-7.4); Neutrophils % 74.9 % (38.7-73.9); Platelet Count 44 T/CUMM (130-400); Red Blood Count 2.43 MC/CUMM (3.8-5.5); Red Cell Distribution Width 20.6 % (9.3-17.3); White Blood Count 6.4 T/CUMM (4-12)
[2016-08-18 06:05] LABS: Magnesium 2.4 MG/DL (1.8-2.4); Phosphorous 2.9 MG/DL (2.5-4.9)
[2016-08-18 06:07] LABS: Calcium 8.2 MG/DL (8.5-10.1); Magnesium 2.3 MG/DL (1.8-2.4); Osmolality,Calculated 294.6 MOS/KG (273-304); Potassium 3.6 MMOL/L (3.5-5.1)
[2016-08-18 06:58] LABS: Hypochromasia 1+; Lymphocytes 15 % (20-55); Macrocytosis 1+; Segmented Neutrophils 77 % (50-85); Total Cells Counted 100
[2016-08-18 06:59] LABS: Platelet Estimate Decreased
--- NOTE | 2016-08-18 08:13 | EKG Report ---
Stationary ECG Study [facility] Test Date: 08/18/2016 8:13 AM Pat Name: BENNY DIOP Department: Room: 237 Gender: M Acid Blower: KEELY : 1965 Requested by: Kevin Graff Order Number: [id number] Reading MD: LEIDY THOMAS Intervals [place] Rate: 60 P: 46 NV: 125 QRS: -39 QRSD: 115 T: 233 QT: 537 QTc: 538 Interpretive Statements SINUS RHYTHM MARKED LEFT AXIS DEVIATION MODERATE INTRAVENTRICULAR CONDUCTION DELAY MODERATE VOLTAGE CRITERIA FOR LVH, CONSIDER NORMAL VARIANT MARKED T-WAVE ABNORMALITY, CONSIDER ANTEROLATERAL ISCHEMIA MODERATE T-WAVE ABNORMALITY, CONSIDER INFERIOR ISCHEMIA Electronically Signed On 08-18-16 09:02:05 CDT by LEIDY THOMAS [email or web address]
--- NOTE | 2016-08-18 09:00 | Cardiology Progress Note ---
Assessment and Plan - Time spent with patient Time spent with patient: Less than 30 minutes (1) Cirrhosis Status: Chronic Current Visit: Yes Qualifiers: Hepatic cirrhosis type: alcoholic cirrhosis Ascites presence: with ascites Qualified Code(s): K70.31 - Alcoholic cirrhosis of liver with ascites (2) Hepatitis C infection Status: Chronic Current Visit: No (3) Hypertension Status: Chronic Current Visit: Yes (4) Elevated troponin Status: Acute Assessment and plan: No further therapy at this time. The patient is asymptomatic and this is a minimal elevation from the "normal". It seems to have little or no clinical meaning of significance. Nothing further to add we will sign off Current Visit: Yes Cardiology - PN: Subj Interval history: 51-year-old gentleman with history of hepatitis C and hepatic encephalopathy at this time who cardiology was asked to see for elevated troponin. He had mild elevation in troponin that peaked around 0.1. It is trended down. He denies any chest pain. His only complaint now scrotal pain. His platelet count severely depressed at 30-40,000. Is a very poor functional status. He has heme in his Cannon catheter at this time is had significant rather advanced but slowly improving encephalopathy is felt to be multifactorial. Nothing further to add at this time we will sign off. Please call if needed. Exam (Progress Note) - Constitutional Vitals: Period Temp Pulse Resp BP Sys/Torres Pulse Ox Last 24 Hr 97.2 F-98.3 F 57-104 18-22 96-125/54-78 91-96 General appearance: under weight - Respiratory Respiratory exam: Present: clear to auscultation bilaterally - Cardiovascular Cardiovascular exam: Present: regular rate and rhythm (Is an S4) - GI/Abdominal GI/Abdominal exam: Present: firm (He has ascites. He has a periumbilical hernia.) - Extremities Exam Extremities exam: Present: other (He has atrophic extremities) - Neurological Exam Neurological exam: Present: alert. Absent: oriented X3 - Skin Skin exam: Present: other (Tattoos) Result/EKG - Labs CBC & BMP: 08/18/16 05:15 08/18/16 05:15 Labs: Laboratory Results - last 24 hr 08/17/16 08/17/16 08/18/16 07:47 12:36 05:15 WBC RBC Hgb Hct MCV MCH MCHC RDW Plt Count MPV Neut % (Auto) Lymph % (Auto) [place] % (Auto) Eos % (Auto) Baso % (Auto) Neut # (Auto) Lymph # (Auto) [place] # (Auto) Eos # (Auto) Baso # (Auto) Total Counted Immature Gran % Nucleated RBC % Immature Gran # Segmented Neutrophils Lymphocytes Monocytes Nucleated RBCs # Platelet Estimate Hypochromasia Macrocytosis Sodium Potassium Chloride Carbon Dioxide Anion Gap BUN Creatinine GFR Calculation BUN/Creatinine Ratio Glucose POC Glucose 163 H 140 H Calculated Osmolality Calcium Phosphorus Magnesium Prealbumin < 3.0 L 08/18/16 08/18/16 08/18/16 05:15 05:15 05:15 WBC 6.4 RBC 2.43 L Hgb 9.3 L Hct 28.5 L MCV 117.3 H MCH 38 H MCHC 32.6 RDW 20.6 H Plt Count 44 L D MPV 11.7 Neut % (Auto) 74.9 H Lymph % (Auto) 16.1 L [place] % (Auto) 8.3 Eos % (Auto) 0.0 Baso % (Auto) 0.2 Neut # (Auto) 4.8 Lymph # (Auto) 1.0 L [place] # (Auto) 0.5 Eos # (Auto) 0.0 Baso # (Auto) 0.0 Total Counted 100 Immature Gran % 0.5 Nucleated RBC % 0.0 Immature Gran # 0.03 Segmented Neutrophils 77 Lymphocytes 15 L Monocytes 8 Nucleated RBCs # 0.00 Platelet Estimate Decreased Hypochromasia 1+ Macrocytosis 1+ Sodium 146 H Potassium 3.6 Chloride 111 H Carbon Dioxide 31 Anion Gap 7.6 BUN 26 H Creatinine 0.40 L GFR Calculation 152 BUN/Creatinine Ratio 65.00 H Glucose 106 POC Glucose Calculated Osmolality 294.6 Calcium 8.2 L Phosphorus 2.9 Magnesium 2.4 2.3 Prealbumin 08/18/16 06:15 WBC RBC Hgb Hct MCV MCH MCHC RDW Plt Count MPV Neut % (Auto) Lymph % (Auto) [place] % (Auto) Eos % (Auto) Baso % (Auto) Neut # (Auto) Lymph # (Auto) [place] # (Auto) Eos # (Auto) Baso # (Auto) Total Counted Immature Gran % Nucleated RBC % Immature Gran # Segmented Neutrophils Lymphocytes Monocytes Nucleated RBCs # Platelet Estimate Hypochromasia Macrocytosis Sodium Potassium Chloride Carbon Dioxide Anion Gap BUN Creatinine GFR Calculation BUN/Creatinine Ratio Glucose POC Glucose 111 H Calculated Osmolality Calcium Phosphorus Magnesium Prealbumin Quality Measures - VTE Contraindication to Pharmacological VTE Prophylaxis: Thrombocytopenia
--- NOTE | 2016-08-18 09:27 | Pulmonology Progress Note ---
Pulmonary - PN: Subj Interval history: Patient is a 51-year-old white male that apparently has some cirrhosis with alcohol abuse. He apparently has a history of COPD also. He was very combative when he came into the emergency room and had to be intubated. He was stable on the ventilator but has remained agitated at times. He is extubated and has done fairly well off the ventilator. He was moved to the room yesterday. He is severely debilitated and has garbled speech and confusion. He had a fairly good weekend but does require sedation. He is not having any respiratory distress. He looks like he needs longterm placement. Exam (Progress Note) - Constitutional Vitals: Period Temp Pulse Resp BP Sys/Torres Pulse Ox Last 24 Hr 97.2 F-98.3 F 57-104 18-22 96-125/54-78 91-96 Exam: General appearance: normal weight, no acute distress (He is resting now and in no distress.) - Head Head exam: Present: normal inspection, normocephalic - Eye Eye exam: Present: EOMI, scleral icterus Pupils: Present: LETTY - ENT ENT exam: Present: normal exam - Neck Neck exam: Present: normal inspection. Absent: lymphadenopathy, thyromegaly - Respiratory Respiratory exam: Present: He has fairly good breath sounds bilaterally but does have some rhonchi. He is moving air okay. - Cardiovascular Cardiovascular exam: Present: regular rate and rhythm. Absent: gallop, systolic murmur - GI/Abdominal GI/Abdominal exam: Present: soft. Absent: ascites, organomegaly, tenderness - Extremities Exam Extremities exam: Absent: calf tenderness, edema - Neurological Exam Neurological exam: Present: altered (Patient is still quite agitated at times. He does not follow any commands purposefully) - Psychiatric Psychiatric exam: Present: He responds now but does get agitated. - Skin Skin exam: Present: warm, dry Results - Labs CBC & BMP: 08/18/16 05:15 08/18/16 05:15 Assessment and Plan (1) Cirrhosis Status: Chronic Assessment and plan: Patient apparently has chronic liver disease and his ammonia level was 57 yesterday. He is getting treatment for his encephalopathy. Current Visit: Yes (2) Delirium due to general medical condition Status: Acute Assessment and plan: The patient was combative in the ER and had to be intubated. He is off the ventilator now but still requires some sedation. He still gets agitated at times. He has garbled speech and confusion. He continues to have a significant encephalopathy. He will probably need placement. Current Visit: Yes (3) COPD (chronic obstructive pulmonary disease) Status: Chronic Assessment and plan: Patient has a history of having COPD. He will continue with bronchodilator therapy. Respiratory status is stable. Overall he is breathing comfortably and I will drop off,Thanks Current Visit: Yes (4) Respiratory failure Status: Acute Assessment and plan: The patient came off the ventilator okay and is not having any respiratory distress now. He is breathing fairly well at present although he is extremely confused and cannot do much activity. His overall outlook looks very poor. He will need some type of placement. Current Visit: Yes
[2016-08-18] MEDS: HYDROCORTISONE 100 MG VIAL IV SCH (09:31)
[2016-08-18] MEDS: LANSOPRAZOLE ODT 30 MG TABLET PER TUBE SCH (09:31)
[2016-08-18] MEDS: FUROSEMIDE 40 MG TABLET PO SCH (09:31)
[2016-08-18] MEDS: BISOPROLOL 5 MG TABLET PO SCH ×2 (09:31→21:59)
--- NOTE | 2016-08-18 11:56 | Hospitalist Progress Note ---
Assessment and Plan (1) Hepatic encephalopathy Status: Acute Assessment and plan: Impression: 1. Hepatic encephalopathy 2. Alcoholic liver disease and chronic hepatitis C 3. Malnutrition 4. E. coli UTI with sepsis Plan: I agree that he probably would be best served in a longterm, or possibly even hospice. Will discuss with family members if any are available. Antibiotics are appropriate for his E. coli bacteremia. This note was completed using [employer] voice recognition software. There may be customer advocacy manager errors as a result. Current Visit: Yes Hospitalist: Subjective Interval history: Follow-up E. coli sepsis, hepatic encephalopathy, and multifactorial liver disease. The patient was under the covers sleeping. When I awakened him, he became agitated and started shouting. He does not know where he is. He is on appropriate antibiotics for the organisms in his blood and urine. There are no family members present in the room. Exam - Constitutional Vitals: Period Temp Pulse Resp BP Sys/Torres Pulse Ox Last 24 Hr 97.2 F-98.3 F 57-104 18-22 96-125/54-78 91-96 Vital signs are noted above. Heart is regular with distant tones. Lungs are clear. Urine is dark with some blood. He is confused and agitated. Results - Labs CBC & BMP: 08/18/16 05:15 08/18/16 05:15 Lab Results: I have reviewed the past 24 hour labs Quality Measures - VTE Contraindication to Pharmacological VTE Prophylaxis: Thrombocytopenia
[2016-08-19] MEDS: INSULIN LISPRO 100 UNIT/ML SUBCUT SCH ×3 (00:48→13:31)
[2016-08-19] MEDS: LACTULOSE 20 GM/30 ML UDCUP PO SCH ×4 (03:35→13:47)
[2016-08-19] MEDS: CEFEPIME 1,000 MG in SODIUM CHLORIDE 0.9% 100 ML IV SCH ×2 (03:37→10:33)
[2016-08-19] MEDS: HYDROCORTISONE 100 MG VIAL IV SCH (08:56)
[2016-08-19] MEDS: FUROSEMIDE 40 MG TABLET PO SCH (08:56)
[2016-08-19] MEDS: LANSOPRAZOLE ODT 30 MG TABLET PER TUBE SCH (08:56)
[2016-08-19] MEDS: BISOPROLOL 5 MG TABLET PO SCH (08:56)
--- NOTE | 2016-08-19 10:22 | Hospitalist Progress Note ---
Assessment and Plan (1) Hepatic encephalopathy Status: Acute Assessment and plan: Impression: 1. Hepatic encephalopathy 2. Alcoholic liver disease and chronic hepatitis C 3. Malnutrition 4. E. coli UTI with sepsis Plan: Advance diet. Continue current medications for bacteremia. Physical therapy evaluation.. This note was completed using [employer] voice recognition software. There may be subwarehouse supervisor errors as a result. Current Visit: Yes Hospitalist: Subjective Interval history: Follow-up hepatic encephalopathy, hepatitis C, E. coli bacteremia, and malnutrition. The patient is awake and conversant today. He tells me that he lives at home with his and children. He had been ambulatory prior to hospitalization. He says that he would like to go back home if he is able. His main complaint today is that he is not getting enough to eat. Exam - Constitutional Vitals: Period Temp Pulse Resp BP Sys/Torres Pulse Ox Last 24 Hr 98.2 F-99.2 F 59-76 18-20 106-115/61-67 94-97 Vital signs are noted above. He appears chronically ill. Heart is regular with distant tones and no murmur. Lungs are clear with no rales or wheezes. He is awake and conversant. Results - Labs CBC & BMP: 08/18/16 05:15 08/18/16 05:15 Quality Measures - VTE Contraindication to Pharmacological VTE Prophylaxis: Thrombocytopenia
[2016-08-19] MEDS ORDERED: cefTRIAXone 1,000 MG in SODIUM CHLORIDE 0.9% 100 ML IV SCH (11:00)
[2016-08-19] MEDS ORDERED: traZODone 50 MG TABLET PO PRN (11:02)
[2016-08-19 11:15] LABS: Renin Activity 15 ng/mL/h
--- NOTE | 2016-08-19 14:01 | Discharge Summary ---
Hospital Course - Hospital Course Hospital Course: Discharge diagnosis: 1. Hepatic encephalopathy 2. 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 Malnutrition 4. Urinary tract infection with sepsis due to E. coli. The patient was admitted to the hospital in hepatic encephalopathy he was combative and required intubation for behavior control. Source of the encephalopathy may have been related to his urinary tract infection and sepsis with E. coli, which was present on admission. Eventually, he was extubated and moved to a room. He tolerated lactulose. His mental status improved. He was able to wake up, eat, and behave appropriately. He is being discharged to a rehab facility, with possible penitentiary placement at a later date. Medication reconciliation has been done. Regular diet. Activity as tolerated. This note was completed using [employer] voice recognition software. There may be commodity director errors as a result. Diagnosis - Discharge Diagnosis (1) Hepatic encephalopathy Status: Acute Discharge Plan - Discharge Data Disposition: Disch/Xfer-Ip Rehab Fac Condition at Discharge: Stable Discharge Diet: advance to your usual diet Activity: resume usual activities as tolerated Hygiene: no restrictions Weight Bearing at Discharge: full weight bearing Driving: not until seen by doctor - Discharge Medications Continue Furosemide Tab [Lasix Tab] 40 mg PO DAILY Amitriptyline [Elavil] 25 mg PO DAILY ALPRAZolam [Xanax] 1 mg PO DAILY Spironolactone 100 mg PO DAILY Nadolol 40 mg PO DAILY Gabapentin 400 mg PO TID Lactulose 30 ml PO BID oxyCODONE IR [Roxicodone] 5 mg PO Q8H #30 tablet - Follow Up or Referral - Forms/Instructions Exam - Constitutional Vitals: Period Temp Pulse Resp BP Sys/Torres Pulse Ox Last 24 Hr 98.4 F-99.2 F 66-111 18-20 106-115/61-72 94-97 Discharge Results Procedures and tests throughout hospitalization: Pending Orders 08/13/16 Aldosterone Stat Renin Activity Stat Labs on day of discharge: Labs from last 24 hours 08/19/16 08/19/16 08/19/16 12:00 05:53 00:10 POC Glucose 119 H 177 H 213 H Renin Activity 08/18/16 08/13/16 15:56 Unknown POC Glucose 123 H Renin Activity 15 DS: Provider Date of admission: 08/09/16 22:56 Primary care physician: . No PCP Attending physician on admission: Jacob Lu MD Consults: 08/10/16 00:29 Consult to Dietitian [CONS] Routine Reason for Dietitian: Diet Recommendations 08/10/16 12:56 Consult to Physician [CONS] Routine Comment: vent director workforce management Provider: Consult to Specialist Group: Pulmonology When should Consulting Provider be notified: Now 08/12/16 08:45 Consult to Physical Therapy [CONS] Routine Reason for Physical Therapy: Evaluate and Treat 08/12/16 13:21 Consult to Dietitian [CONS] Routine Reason for Dietitian: Diet Instruction 08/12/16 14:22 Consult to Dietitian [CONS] Routine Reason for Dietitian: TF-Initiate/Manage 08/13/16 08:34 Consult to Case Mgmt/Social Srvs [CONS] Routine Reason for Case Mgmt/Social Srvs: Hospice Referral Discharge Planning 08/15/16 09:27 Consult to Physician [CONS] Routine Comment: elevated troponin and reported tachycardia Consulting Provider: Cardiology - [facility] Consult to Specialist Group: Cardiology When should Consulting Provider be notified: Now Person Notified: MARLENE Date Notified: 08/15/16 Time Notified: 09:48 Discharging clinician: Alexandre Ledesma MD Expected date of discharge: 08/19/16
[2016-08-19 20:37] VITALS: BP 128/79
--- NOTE | 2016-08-28 07:20 | Physician Query Form ---
CLICK EDIT DOCUMENT TO SELECT QUERY ANSWER --> OK --> SIGN PROVIDERS: Make your selection(s) from the choices in EACH section by typing an "x" and enter comments in the comment section. Please use your independent medical judgment in providing your response. This request does not imply that any particular answer is desired or expected. CLINICAL INDICATORS: (Providers should not edit this section) The medical record indicates that the patient was admitted with Hepatic Encephalopathy, on the : Urine (voided) culture was no Growth, Urinalysis Urine WBC of 31#, Urine Leukocytes Negative, then on the : Urine culture >100,000 Escherichia coli, Urine Leukocytes Urine WBC 100#, Urine Leukocytes Trace, Urine Nitrate Positive, Blood cultures negative on the Blood cultures positive times 2 on the for "Escherichia Coli". On August 18 "E. coli UTI with Sepsis" is mentioned. PER Discharge Summary: " Source of the encephalopathy may have been related to his urinary tract infection and sepsis with E. coli, which was present on admission." ER Vital Signs: Temp 98.0- Pulse 112- RR of 12 - BP 141/90---WBC 7.4#--- Diagnosis: Sepsis Please clarify the status of (diagnosis) based on the above: ( ) The above diagnosis was present on admission If POA can you please include the clinical indicators ( ) The above diagnosis was NOT present on admission ( ) Other, please specify: ( x) Clinically unable to determine COMMENTS: Use of terms such as suspected, likely, or probable (associated with a specific diagnosis that is being evaluated, monitored, or treated as if it exists) are acceptable and can be restated in the discharge summary if not ruled out. MTDD
--- NOTE | 2016-08-28 08:34 | Physician Query Form ---
CLICK EDIT DOCUMENT TO SELECT QUERY ANSWER --> OK --> SIGN Lisha Mesa RN, CCDS Certified Clinical [employer]ary Production Supervisor W) [phone] (f) [phone] [email or web address] PROVIDERS: Make your selection(s) from the choices in EACH section by typing an "x" and enter comments in the comment section. Please use your independent medical judgment in providing your response. This request does not imply that any particular answer is desired or expected. CLINICAL INDICATORS: (Providers should not edit this section) The medical record indicates that the patient was admitted with Hepatic Encephalopathy, on the : Urine (voided) culture was no Growth, Urinalysis Urine WBC of 31#, Urine Leukocytes Negative, then on the : Urine culture >100,000 Escherichia coli, Urine Leukocytes Urine WBC 100#, Urine Leukocytes Trace, Urine Nitrate Positive, "Leukocytosis-due to acute catheter associated UTI" on the Blood cultures negative on the ---- ------Blood cultures positive times 2 on the for "Escherichia Coli".------- On August 18 "E. coli UTI with Sepsis" is mentioned. Due to conflicting documentation can you please clarify? Based on the above, could you clarify the appropriate diagnosis, if significant , that supports the above abnormalities and additional evaluation, monitoring, and/or treatment rendered: ( ) UTI was not POA--developed later and is not due to Catheterization ( ) UTI was not POA--developed later and is due to Catheterization ( ) UTI was POA and not associated with Catheterization ( ) UTI was POA ( ) Other, please specify: ( x) Clinically unable to determine COMMENTS: Use of terms such as suspected, likely, or probable (associated with a specific diagnosis that is being evaluated, monitored, or treated as if it exists) are acceptable and can be restated in the discharge summary if not ruled out. MTDD
== END 2016-08-19 21:00 | DRG 280 ==
LOC: EDUNIT# → N.ED 19:19 → SUATTDRO 22:56 → N.EDINP 22:56 → N.ED 23:40 → N.TELES 08-14 13:07 → N.2E 08-14 14:13
PROVIDERS: ADMIT Internal Medicine; ATTEND Internal Medicine Geriatric Medicine